=== PATIENT | female | born 1945 | race Caucasian/White ===

== ENCOUNTER 2019-08-21 08:57 | Outpatient (CLI) | payer MEDICARE, BC, SELFPAY ==
--- NOTE | 2019-08-21 09:06 | CT_ITS ---
WS: [id number] CT CHEST ANGIOGRAPHY WITH REFORMATS HISTORY: ATYPICAL CHEST PAIN TECHNIQUE: Contiguous axial images are obtained through the chest during arterial injection of intrav enous contrast. Images are reconstructed to evaluate the pulmonary arteries. MIP imaging also reviewe d. All CT scans at [facility] use at least one of these dose optimization techniques: aut omated exposure control; mA and/or kV adjustment per patient size (includes targeted exams where dose is matched to clinical indication); or iterative reconstruction. CONTRAST: Visipaque 320; 95 mL IV. DLP: 559.0 mGy.cm COMPARISON: 11/29/2018 Good opacification of the pulmonary arteries. No filling defects or pulmonary embolism. Pulmonary art carolee size is slightly larger than the ascending aorta measuring 3.2 cm. Ascending aorta is normal caliber. Mixed opacification of the thoracic aorta. This is probably due to the phase of injection. There is also additional intimal thickening and scattered plaque. Mild enlar gement of the heart. No pericardial or pleural effusions. Small mediastinal and hilar lymph nodes. Th e largest lymph node at the RIGHT hilum measures 8 mm. Mild thickening of the distal esophagus. Moderate atherosclerosis coronary arteries. 2 mm micronodules in the LEFT upper lung. Lungs are hyperinflated from emphysema. No mass. Visualized upper abdominal structures are negative for acute process. CT/CT angio chest PE protcl [id number] IMPRESSION: 1. No pulmonary embolism. 2. Mild pulmonary hypertension. 3. Atherosclerosis aorta with intimal thickening and plaque. 4. Heterogeneous opacification of the thoracic aorta is probably due to phase of injection. Suggest dedicated CTA thoracic aorta. Intraluminal thrombus or di ssection should be excluded. 5. Moderate coronary artery atherosclerosis.
--- NOTE | 2019-08-21 09:06 | FL_ITS ---
WS: [id number] UPPER GI WITH SMALL BOWEL FOLLOW-THROUGH HISTORY: EPIGASTRIC PAIN COMPARISON: None available. FLUOROSCOPIC TIME: 1.2 minutes. Double contrast upper GI examination was performed. Patient swallowed the barium mixture with no difficulty. No esophageal stricture or mass. No hilar he rnia or reflux was demonstrated. Stomach distended well with contrast. Duodenal bulb was distensible pliable. No ulceration or mass. Small bowel follow-through. Barium transited the small bowel at 45 minutes. No small bowel strictures or dilatation. No mass or o bstruction. Normal appearance of the right lower quadrant. FL/FL upperGI air smallbowel ser* IMPRESSION: 1. Unremarkable upper GI examination. 2. Unremarkable small bowel follow-through.
[2019-08-21 10:22] LABS: Blood Urea Nitrogen 9 mg/dL (8-23)
[2019-08-21] MEDS: iodixanol 320 mg/mL 100mL Btl IV (11:01)
== END 2019-08-21 08:58 | disposition home or self-care (01) ==
LOC: CT 09:00
PROVIDERS: PCP Family Medicine; Visit Provider Family Medicine
DX: R07.89 Other chest pain (principal); R10.13 Epigastric pain; I27.20 Pulmonary hypertension, unspecified; I70.0 Atherosclerosis of aorta; I25.10 Atherosclerotic heart disease of native coronary artery without angina pectoris
CPT/HCPCS: 36415; 71275; 74246; 74248; 82565; 84520

== ENCOUNTER 2019-08-24 15:46 | Observation (INO) | payer MEDICARE, BC, SELFPAY ==
[2019-08-24 15:48] VITALS: BP 118/59; PULSE 85; RESP 16; TEMP 37.1; O2SAT 96; BMI 26.5
--- NOTE | 2019-08-24 15:58 | ECG_ITS ---
[facility] Test Date: 2019-08-24 Pat Name: Ella Russell Department: Room: Gender: Female Chaperon: : 1945 Requested By: Pa Pederson Order Number: [id number] Nella MD: Natasha Mckeon M.D. Measurements Intervals [place] Rate: 85 P: 67 [place]: 189 QRS: -40 QRSD: 94 T: 32 QT: 358 QTc: 426 Interpretive Statements SINUS RHYTHM POSSIBLE LEFT ATRIAL ENLARGEMENT [-0.1mV P WAVE IN V1/V2] LOW QRS VOLTAGE IN PRECORDIAL LEADS [QRS DEFLECTION < 1.0 mV IN CHEST LEADS] POSSIBLE ANTERIOR MYOCARDIAL INFARCTION , PROBABLY OLD [30 ms Q WAVE IN V3/V4, OR R < 0.2 mV IN V4] Compared to ECG 12/31/2018 06:58:08 T-wave abnormality no longer present Possible ischemia no longer present Myocardial infarct finding still present Electronically Signed On 08-24-2019 17:01:54 CDT by Natasha Mckeon M.D. [id number]
--- NOTE | 2019-08-24 15:58 | XRR_ITS ---
PROCEDURE INFORMATION: Exam: XR Chest, 1 View Exam date and time: 08/24/2019 4:17 PM Age: 73 years old Clinical indication: Shortness of breath; Left-sided chest pain; Additional info: Cp/sob x 2 days TECHNIQUE: Imaging protocol: XR of the chest Views: 1 view. COMPARISON: CR Chest 1 [place] [id number] 12/31/2018 7:10 AM FINDINGS: Lungs: Unremarkable. No consolidation. Pleural space: Unremarkable. No pleural effusion. No pneumothorax. Heart/Mediastinum: Unremarkable. No cardiomegaly. Bones/joints: Unremarkable. There has been no change since prior XR/XR chest 1V portable [id number] IMPRESSION: No acute findings.
--- NOTE | 2019-08-24 16:00 | ED_ITS ---
Documented by User: Pa Rodriguez DO 08/24/19 16:03 HPI - Chest Pain General: Chief Complaint: Chest Pain Stated Complaint: CHEST PAIN Time Seen by Provider: 08/24/19 15:48 History of Present Illness: HPI narrative: Patient presents to the ER by EMS with complaint of sharp chest pain on the left side of her chest that awoke her from sleep early this morning. Pain is episodic. Patient is unsure of any exacerbating or relieving factors. She states that she is always short of breath not report any change during this pain. Review of Systems General: Reports: 10 or more systems reviewed and unremarkable except in HPI and below PFSH ED PFSH: Medical History COPD (chronic obstructive pulmonary disease) CVA (cerebral vascular accident) IBS (irritable bowel syndrome) Obstructive sleep apnea Seizures Tobacco abuse Surgical History S/P cataract surgery S/P hip replacement Right and Left S/P knee replacement Left Family History Other Heart disease Myocardial infarction Social History Smoking and tobacco status: current every day smoker cigarettes Packs smoked per day: 2 Alcohol intake: current Alcohol intake frequency: holidays/special occasions only Physical Exam Const: COMMON NORMALS: no acute distress, average body habitus, alert and well nourished HENMT: COMMON NORMALS: normocephalic, atraumatic, hearing grossly normal bilaterally, external ears normal, EAC's normal, TM's normal bilaterally, Normal external nose present, Normal nasal mucous membranes and turbinates present, moist oral mucous membranes, oropharynx normal, dentition normal and gingiva nor mal HEAD & SCALP: normocephalic and atraumatic NOSE: Normal external nose present and Normal nasal mucous membranes and turbinates present EXTERNAL EAR: Yes external ears normal EXTERNAL AUDITORY CANAL: EAC's normal TYMPANIC MEMBRANE: TM's normal bilaterally Eye: COMMON NORMALS: Equal, round and reactive pupils present, EOMs intact bilaterally, conjunctivae normal, no scleral icterus, no papilledema, normal visual quinonez by confrontation and fundi normal bilaterally CONJUNCTIVA: Yes conjunctivae normal PUPIL: Yes Equal, round and reactive pupils present DIRECT OPHTHALMOSCOPY: Yes no papilledema and Yes fundi normal bilaterally Neck/C-Spine: COMMON NORMALS: full ROM, no lymphadenopathy, supple, no meningeal signs, no JVD, Thyroid normal and No carotid bruits THYROID: Thyroid normal Chest: COMMONS NORMALS: normal inspection of the chest and normal palpation of entire chest wall Resp: COMMON NORMALS: normal respiratory effort, No retractions, No use of accessory muscles, clear to auscultation bilaterally and percussion normal AUSCULTATION: clear to auscultation bilaterally PERCUSSION: percussion normal Cardio: COMMON NORMALS: no JVD, regular rate, regular rhythm, S1 normal heart sound present, S2 normal heart sound present, No gallops present (Cardio), No clicks present (Cardio), No murmurs present (Cardio), No rub (Cardio) and Peripheral pulses 2+ throughout RATE: regular rate RHYTHM: regular rhythm HEART SOUNDS: S1 normal heart sound present and S2 normal heart sound present PERIPHERAL PULSES: Peripheral pulses 2+ throughout GI: COMMON NORMALS: Normal to inspection, nondistended, normoactive bowel sounds present, Soft to palpation, non-tender, No hepatosplenomegaly present, no masses and no bruits PALPATION: Yes Soft to palpation and Yes No hepatosplenomegaly present : COMMON NORMALS: Yes normal external appearance Back/Pelvis: COMMON NORMALS: thoracic and lumbar spine normal to inspection, no thoracic nor lumbar tenderness, thoraco-lumbar ROM normal and straight leg raise negative bilaterally Extremity: COMMON NORMALS: normal to inspection, full ROM, capillary refill normal, no joint enlargement, no clubbing, cyanosis or edema, no calf tenderness and no pedal edema Neuro: SENSORIUM/ORIENTATION: Yes alert and Yes somnolent MENINGEAL SIGNS: Yes no meningeal signs Skin: COMMON NORMALS: no rashes or lesions noted, no wounds, no jaundice and no mottling GENERAL SKIN EXAM: no rashes or lesions noted Course Vital Signs: Vital signs: Vital Signs Temperature 98.7 F 08/24/19 15:48 Pulse Rate 62 08/24/19 19:00 Respiratory Rate 12 08/24/19 19:00 Blood Pressure 145/65 08/24/19 19:00 Pulse Oximetry 97 08/24/19 19:00 MDM - Chest Pain Lab Data: Labs: Lab Results 08/24/19 08/24/19 08/24/19 Range/Units 16:18 16:18 16:18 WBC 7.6 (4.0-10.0) 10^3/ uL RBC 4.50 (4.1-5.3) 10^6/u L Hgb 13.9 (11.5-15.3) g/dL Hct 42.8 (37.0-47.0) % MCV 95.1 (81-99) fL MCH 30.9 (28.0-34.0) pg MCHC 32.5 (30.0-36.0) g/dL RDW 13.6 (12.1-15.1) % Plt Count 237 (130-400) 10^3/c mm MPV 8.9 (7.4-10.4) fL Neut % (Auto) 67.4 % Lymph % (Auto) 22.1 % Ogle % (Auto) 8.1 % Eos % (Auto) 1.8 % Baso % (Auto) 0.5 % Neut # (Auto) 5.14 (1.8-7.7) 10^3/u L Lymph # (Auto) 1.7 (0.8-4.8) 10^3/u L Ogle # (Auto) 0.6 (0.2-0.9) 10^3/u L Eos # (Auto) 0.1 (0.0-0.8) 10^3/u L Baso # (Auto) 0.0 (0.0-0.1) 10^3/u L Nucleated RBC % (a uto) 0 % Nucleated RBCs # 0.0 /100WBC Sodium 141 (136-145) mmol/L Potassium 3.8 (3.5-5.1) mmol/L Chloride 109 H (98-107) mmol/L Carbon Dioxide 22 (22-29) mmol/L Anion Gap 13.8 (5-19) BUN 13 (8-23) mg/dL Creatinine 1.1 H (0.5-0.9) mg/dL Glucose 122 H (65-115) mg/dL Calculated Osmolal ity 289 (285-295) mOsm/k g Calcium 9.8 (8.5-10.5) mg/dL Total Bilirubin 0.2 (0.15-1.2) mg/dL AST 14 (0-32) U/L ALT 7 (0-33) U/L Alkaline Phosphata se 103 (35-105) IU/L Troponin T Baselin e 9 (0-10) ng/L Troponin T 120 Min [place] (0-10) ng/L Delta Troponin T (0-10) ABS# NT-Pro-B Natriuret Pep 79 (0-125) pg/mL Total Protein 6.9 (6.6-8.7) g/dL Albumin 4.4 (3.5-5.2) g/dL Globulin 2.5 (1.3-4.6) g/dL 08/24/19 Range/Units 18:15 WBC (4.0-10.0) 10^3/ uL RBC (4.1-5.3) 10^6/u L Hgb (11.5-15.3) g/dL Hct (37.0-47.0) % MCV (81-99) fL MCH (28.0-34.0) pg MCHC (30.0-36.0) g/dL RDW (12.1-15.1) % Plt Count (130-400) 10^3/c mm MPV (7.4-10.4) fL Neut % (Auto) % Lymph % (Auto) % Ogle % (Auto) % Eos % (Auto) % Baso % (Auto) % Neut # (Auto) (1.8-7.7) 10^3/u L Lymph # (Auto) (0.8-4.8) 10^3/u L Ogle # (Auto) (0.2-0.9) 10^3/u L Eos # (Auto) (0.0-0.8) 10^3/u L Baso # (Auto) (0.0-0.1) 10^3/u L Nucleated RBC % (a uto) % Nucleated RBCs # /100WBC Sodium (136-145) mmol/L Potassium (3.5-5.1) mmol/L Chloride (98-107) mmol/L Carbon Dioxide (22-29) mmol/L Anion Gap (5-19) BUN (8-23) mg/dL Creatinine (0.5-0.9) mg/dL Glucose (65-115) mg/dL Calculated Osmolal ity (285-295) mOsm/k g Calcium (8.5-10.5) mg/dL Total Bilirubin (0.15-1.2) mg/dL AST (0-32) U/L ALT (0-33) U/L Alkaline Phosphata se (35-105) IU/L Troponin T Baselin e (0-10) ng/L Troponin T 120 Min [place] 10.52 H (0-10) ng/L Delta Troponin T 1.52 (0-10) ABS# NT-Pro-B Natriuret Pep (0-125) pg/mL Total Protein (6.6-8.7) g/dL Albumin (3.5-5.2) g/dL Globulin (1.3-4.6) g/dL Discharge Plan Discharge Patient Disposition: Placed in Observation Admit Provider: Db Suárez Clinical Impression: Chest pain Condition: Stable Coding Level of Care Code ED Button Machine Operator for Chg Fwd Exam Comprehensive Documented by User: Alison Reilly 08/24/19 21:10 HPI - Chest Pain General: Chief Complaint: Chest Pain Stated Complaint: CHEST PAIN Time Seen by Provider: 08/24/19 15:48 [facility], [facility]1983 ED PFSH: Medical History COPD (chronic obstructive pulmonary disease) CVA (cerebral vascular accident) IBS (irritable bowel syndrome) Obstructive sleep apnea Seizures Tobacco abuse Surgical History S/P cataract surgery S/P hip replacement Right and Left S/P knee replacement Left Family History Other Heart disease Myocardial infarction Social History Smoking and tobacco status: current every day smoker cigarettes Packs smoked per day: 2 Alcohol intake: current Alcohol intake frequency: holidays/special occasions only Course Vital Signs: Vital signs: Vital Signs Temperature 98.7 F 08/24/19 15:48 Pulse Rate 62 08/24/19 19:00 Respiratory Rate 12 08/24/19 19:00 Blood Pressure 145/65 08/24/19 19:00 Pulse Oximetry 97 08/24/19 19:00 MDM - Chest Pain MDM Narrative: Medical decision making narrative: The case was reviewed with Dr. Blanco, he agrees to admit the patient for a cath tomorrow. Repeat CTA does not show any evidence of dissection. It does show though severe coronary artery disease. Further care will be dictated by Dr. Blanco. Patient is still chest pain-free. Lab Data: Attestation: I reviewed the patient's lab results. Labs: Lab Results 08/24/19 08/24/19 08/24/19 Range/Units 16:18 16:18 16:18 WBC 7.6 (4.0-10.0) 10^3/ uL RBC 4.50 (4.1-5.3) 10^6/u L Hgb 13.9 (11.5-15.3) g/dL Hct 42.8 (37.0-47.0) % MCV 95.1 (81-99) fL MCH 30.9 (28.0-34.0) pg MCHC 32.5 (30.0-36.0) g/dL RDW 13.6 (12.1-15.1) % Plt Count 237 (130-400) 10^3/c mm MPV 8.9 (7.4-10.4) fL Neut % (Auto) 67.4 % Lymph % (Auto) 22.1 % Ogle % (Auto) 8.1 % Eos % (Auto) 1.8 % Baso % (Auto) 0.5 % Neut # (Auto) 5.14 (1.8-7.7) 10^3/u L Lymph # (Auto) 1.7 (0.8-4.8) 10^3/u L Ogle # (Auto) 0.6 (0.2-0.9) 10^3/u L Eos # (Auto) 0.1 (0.0-0.8) 10^3/u L Baso # (Auto) 0.0 (0.0-0.1) 10^3/u L Nucleated RBC % (a uto) 0 % Nucleated RBCs # 0.0 /100WBC Sodium 141 (136-145) mmol/L Potassium 3.8 (3.5-5.1) mmol/L Chloride 109 H (98-107) mmol/L Carbon Dioxide 22 (22-29) mmol/L Anion Gap 13.8 (5-19) BUN 13 (8-23) mg/dL Creatinine 1.1 H (0.5-0.9) mg/dL Glucose 122 H (65-115) mg/dL Calculated Osmolal ity 289 (285-295) mOsm/k g Calcium 9.8 (8.5-10.5) mg/dL Total Bilirubin 0.2 (0.15-1.2) mg/dL AST 14 (0-32) U/L ALT 7 (0-33) U/L Alkaline Phosphata se 103 (35-105) IU/L Troponin T Baselin e 9 (0-10) ng/L Troponin T 120 Min [place] (0-10) ng/L Delta Troponin T (0-10) ABS# NT-Pro-B Natriuret Pep 79 (0-125) pg/mL Total Protein 6.9 (6.6-8.7) g/dL Albumin 4.4 (3.5-5.2) g/dL Globulin 2.5 (1.3-4.6) g/dL 08/24/19 Range/Units 18:15 WBC (4.0-10.0) 10^3/ uL RBC (4.1-5.3) 10^6/u L Hgb (11.5-15.3) g/dL Hct (37.0-47.0) % MCV (81-99) fL MCH (28.0-34.0) pg MCHC (30.0-36.0) g/dL RDW (12.1-15.1) % Plt Count (130-400) 10^3/c mm MPV (7.4-10.4) fL Neut % (Auto) % Lymph % (Auto) % Ogle % (Auto) % Eos % (Auto) % Baso % (Auto) % Neut # (Auto) (1.8-7.7) 10^3/u L Lymph # (Auto) (0.8-4.8) 10^3/u L Ogle # (Auto) (0.2-0.9) 10^3/u L Eos # (Auto) (0.0-0.8) 10^3/u L Baso # (Auto) (0.0-0.1) 10^3/u L Nucleated RBC % (a uto) % Nucleated RBCs # /100WBC Sodium (136-145) mmol/L Potassium (3.5-5.1) mmol/L Chloride (98-107) mmol/L Carbon Dioxide (22-29) mmol/L Anion Gap (5-19) BUN (8-23) mg/dL Creatinine (0.5-0.9) mg/dL Glucose (65-115) mg/dL Calculated Osmolal ity (285-295) mOsm/k g Calcium (8.5-10.5) mg/dL Total Bilirubin (0.15-1.2) mg/dL AST (0-32) U/L ALT (0-33) U/L Alkaline Phosphata se (35-105) IU/L Troponin T Baselin e (0-10) ng/L Troponin T 120 Min [place] 10.52 H (0-10) ng/L Delta Troponin T 1.52 (0-10) ABS# NT-Pro-B Natriuret Pep (0-125) pg/mL Total Protein (6.6-8.7) g/dL Albumin (3.5-5.2) g/dL Globulin (1.3-4.6) g/dL Imaging Data^: CTA Aorta: Radiologist's impression: [address] [place] [address] CT Scan Report Signed Patient: Ella Russell Unit #: [id number] : 1945 Age/Sex: 73 / F ADM Date: 08/24/19 Loc: ER Room/Bed: Attending Dr: Ordering Provider/Ordering MD: Alison Reilly DO Date of Service: 08/24/19 Procedure(s): CT angio chest abdomen pelvis Accession Number(s): [id number] Report Number: [id number] PROCEDURE INFORMATION: Exam: CT Angiography Chest With Contrast Exam date and time: 08/24/2019 7:32 PM Age: 73 years old Clinical indication: Abdominal pain; Acute; Chest pain; Type not specified; Additional info: Evaluate for dissection TECHNIQUE: Imaging protocol: Computed tomographic angiography of the chest with intravenous contrast. 3D rendering: MIP and/or 3D reconstructed images were created by the technologist. Radiation optimization: All CT scans at this facility use at least one of these dose optimization techniques: automated exposure control; mA and/or kV adjustment per patient size (includes targeted exams where dose is matched to clinical indication); or iterative reconstruction. Contrast material: VISI; Contrast volume: 95 ml; Contrast route: INTRAVENOUS (IV); COMPARISON: CT angio chest PE protcl [id number] 08/21/2019 10:50 AM RADIATION DOSE METRICS: Total DLP (mGy-cm): 1338.33 FINDINGS: Pulmonary arteries: No pulmonary embolus or aortic dissection. Great vessels off aortic arch: Calcification of the thoracic aorta and/or great vessels consistent with atherosclerotic vessel disease. Aorta: Unremarkable. No aortic aneurysm. No aortic dissection. Lungs: Moderate centrilobular emphysema. Pleural space: Unremarkable. No pneumothorax. No pleural effusion. Heart: Severe calcified coronary artery disease. Lymph nodes: Unremarkable. No enlarged lymph nodes. Bones/joints: Unremarkable. No acute fracture. Soft tissues: Unremarkable. IMPRESSION: 1. Moderate centrilobular emphysema. 2. No pulmonary embolus or aortic dissection. 3. Severe calcified coronary artery disease. PROCEDURE INFORMATION: Exam: CT Abdomen And Pelvis With Contrast Exam date and time: 08/24/2019 7:32 PM Age: 73 years old Clinical indication: Abdominal pain; Acute; Chest pain; Type not specified; Additional info: Evaluate for dissection TECHNIQUE: Imaging protocol: Computed tomography of the abdomen and pelvis with intravenous contrast. Radiation optimization: All CT scans at this facility use at least one of these dose optimization techniques: automated exposure control; mA and/or kV adjustment per patient size (includes targeted exams where dose is matched to clinical indication); or iterative reconstruction. Contrast material: VISI; Contrast volume: 95 ml; Contrast route: INTRAVENOUS (IV); COMPARISON: CT angio chest PE protcl [id number] 08/21/2019 10:50 AM RADIATION DOSE METRICS: Total DLP (mGy-cm): 1338.33 FINDINGS: Liver: Normal. No mass. Gallbladder and bile ducts: Normal. No calcified stones. No ductal dilation. Pancreas: Normal. No ductal dilation. Spleen: Calcified splenic granulomas. Adrenals: Normal. No mass. Kidneys and ureters: One or more nonobstructing right renal calyceal stones. Stomach and bowel: Retained colonic high density barium with prominent metallic artifact which obscures some anatomy. Appendix: No evidence of appendicitis. Intraperitoneal space: Unremarkable. No free air. No significant fluid collection. Vasculature: Calcification of the abdominal aorta and/or iliac arteries consistent with atherosclerotic vessel disease. No aneurysm or abdominal aortic dissection. Lymph nodes: Unremarkable. No enlarged lymph nodes. Bladder: Unremarkable as visualized. Reproductive: Unremarkable as visualized. Bones/joints: Bilateral total hip replacement with metallic artifact partially obscuring the pelvic anatomy. Soft tissues: Unremarkable. CT/CT angio chest abdomen pelvis IMPRESSION: 1. Retained colonic high density barium with prominent metallic artifact which obscures some anatomy. 2. Bilateral total hip replacement with metallic artifact partially obscuring the pelvic anatomy. 3. No aneurysm or abdominal aortic dissection. 4. One or more nonobstructing right renal calyceal stones. Radiation Dose CTDIVOL = (mGy): DLP = 1338.33 1338.33 (mGy-cm) Dictated By: Angel Vera MD Signed By: Angel Vera MD Signed Date/Time: 08/24/192015 DD/ 13 Discharge Plan Discharge Patient Disposition: Placed in Observation Admit Provider: Db Suárez Clinical Impression: Chest pain Condition: Stable Coding Level of Care Code ED Button Machine Operator for Chg Fwd Exam Comprehensive
[2019-08-24 16:26] LABS: Basophils % 0.5 %; Eosinophils # 0.1 10^3/uL (0.0-0.8); Eosinophils % 1.8 %; Hematocrit 42.8 % (37.0-47.0); Hemoglobin 13.9 g/dL (11.5-15.3); Lymphocytes # 1.7 10^3/uL (0.8-4.8); Lymphocytes % 22.1 %; Mean Corpuscular HGB Conc 32.5 g/dL (30.0-36.0); Mean Corpuscular Hemoglobin 30.9 pg (28.0-34.0); Mean Corpuscular Volume 95.1 fL (81-99); Mean Platelet Volume 8.9 fL (7.4-10.4); Monocytes # 0.6 10^3/uL (0.2-0.9); Monocytes % 8.1 %; Neutrophils # 5.14 10^3/uL (1.8-7.7); Neutrophils % 67.4 %; Nucleated Red Blood Cells % 0 %; Platelet Count 237 10^3/cmm (130-400); Red Cell Distribution Width 13.6 % (12.1-15.1); White Blood Count 7.6 10^3/uL (4.0-10.0)
[2019-08-24 16:49] LABS: Troponin(5th) Baseline 9 ng/L (0-10)
[2019-08-24 16:52] LABS: Alanine Aminotransferase 7 U/L (0-33); Albumin Level 4.4 g/dL (3.5-5.2); Alkaline Phosphatase 103 IU/L (35-105); Anion Gap 13.8 (5-19); Aspartate Amino Transferase 14 U/L (0-32); Blood Urea Nitrogen 13 mg/dL (8-23); Calcium 9.8 mg/dL (8.5-10.5); Carbon Dioxide 22 mmol/L (22-29); Chloride 109 mmol/L (98-107); Globulin 2.5 g/dL (1.3-4.6); Glucose 122 mg/dL (65-115); NT Pro B Type Natriuretic Pept 79 pg/mL (0-125); Osmolality Calculated 289 mOsm/kg (285-295); Potassium 3.8 mmol/L (3.5-5.1); Sodium 141 mmol/L (136-145); Total Bilirubin 0.2 mg/dL (0.15-1.2); Total Protein 6.9 g/dL (6.6-8.7)
--- NOTE | 2019-08-24 17:58 | ECG_ITS ---
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 Measurements Intervals [place] Rate: 55 P: 68 MS: 211 QRS: -33 QRSD: 92 T: 70 QT: 398 QTc: 384 Interpretive Statements SINUS BRADYCARDIA WITH FIRST DEGREE AV BLOCK LOW QRS VOLTAGE IN PRECORDIAL LEADS [QRS DEFLECTION < 1.0 mV IN CHEST LEADS] PATTERN CONSISTENT WITH PULMONARY DISEASE MODERATE T-WAVE ABNORMALITY, CONSIDER ANTERIOR ISCHEMIA [-0.1+ mV T WAVE IN V3/V4] WARNING: DATA QUALITY MAY AFFECT INTERPRETATION Compared to ECG 08/24/2019 18:31:22 First degree AV block now present T-wave abnormality now present Possible ischemia now present Incomplete right bundle-branch block no longer present Myocardial infarct finding no longer present Electronically Signed On 08-25-2019 19:05:27 CDT by Db Suárez M.D. [id number]
--- NOTE | 2019-08-24 18:25 | PC.NURSE ---
EKG done at 1825 and shown to ER doctor
[2019-08-24 18:34] LABS: Troponin 5 2HR 10.52 ng/L (0-10); Troponin 5 2HR Delta 1.52 ABS# (0-10)
[2019-08-24 18:42] VITALS: BP 105/80; PULSE 94; RESP 18; O2SAT 97
[2019-08-24 19:00] VITALS: BP 145/65; PULSE 62; RESP 12; O2SAT 97
--- NOTE | 2019-08-24 19:16 | CTR_ITS ---
PROCEDURE INFORMATION: Exam: CT Angiography Chest With Contrast Exam date and time: 08/24/2019 7:32 PM Age: 73 years old Clinical indication: Abdominal pain; Acute; Chest pain; Type not specified; Additional info: Evaluate for dissection TECHNIQUE: Imaging protocol: Computed tomographic angiography of the chest with intravenous contrast. 3D rendering: MIP and/or 3D reconstructed images were created by the technologist. Radiation optimization: All CT scans at this facility use at least one of these dose optimization techniques: automated exposure control; mA and/or kV adjustment per patient size (includes targeted exams where dose is matched to clinical indication); or iterative reconstruction. Contrast material: VISI; Contrast volume: 95 ml; Contrast route: INTRAVENOUS (IV); COMPARISON: CT angio chest PE protcl [id number] 08/21/2019 10:50 AM RADIATION DOSE METRICS: Total DLP (mGy-cm): 1338.33 FINDINGS: Pulmonary arteries: No pulmonary embolus or aortic dissection. Great vessels off aortic arch: Calcification of the thoracic aorta and/or great vessels consistent with atherosclerotic vessel disease. Aorta: Unremarkable. No aortic aneurysm. No aortic dissection. Lungs: Moderate centrilobular emphysema. Pleural space: Unremarkable. No pneumothorax. No pleural effusion. Heart: Severe calcified coronary artery disease. Lymph nodes: Unremarkable. No enlarged lymph nodes. Bones/joints: Unremarkable. No acute fracture. Soft tissues: Unremarkable. IMPRESSION: 1. Moderate centrilobular emphysema. 2. No pulmonary embolus or aortic dissection. 3. Severe calcified coronary artery disease. PROCEDURE INFORMATION: Exam: CT Abdomen And Pelvis With Contrast Exam date and time: 08/24/2019 7:32 PM Age: 73 years old Clinical indication: Abdominal pain; Acute; Chest pain; Type not specified; Additional info: Evaluate for dissection TECHNIQUE: Imaging protocol: Computed tomography of the abdomen and pelvis with intravenous contrast. Radiation optimization: All CT scans at this facility use at least one of these dose optimization techniques: automated exposure control; mA and/or kV adjustment per patient size (includes targeted exams where dose is matched to clinical indication); or iterative reconstruction. Contrast material: VISI; Contrast volume: 95 ml; Contrast route: INTRAVENOUS (IV); COMPARISON: CT angio chest PE protcl [id number] 08/21/2019 10:50 AM RADIATION DOSE METRICS: Total DLP (mGy-cm): 1338.33 FINDINGS: Liver: Normal. No mass. Gallbladder and bile ducts: Normal. No calcified stones. No ductal dilation. Pancreas: Normal. No ductal dilation. Spleen: Calcified splenic granulomas. Adrenals: Normal. No mass. Kidneys and ureters: One or more nonobstructing right renal calyceal stones. Stomach and bowel: Retained colonic high density barium with prominent metallic artifact which obscures some anatomy. Appendix: No evidence of appendicitis. Intraperitoneal space: Unremarkable. No free air. No significant fluid collection. Vasculature: Calcification of the abdominal aorta and/or iliac arteries consistent with atherosclerotic vessel disease. No aneurysm or abdominal aortic dissection. Lymph nodes: Unremarkable. No enlarged lymph nodes. Bladder: Unremarkable as visualized. Reproductive: Unremarkable as visualized. Bones/joints: Bilateral total hip replacement with metallic artifact partially obscuring the pelvic anatomy. Soft tissues: Unremarkable. CT/CT angio chest abdomen pelvis IMPRESSION: 1. Retained colonic high density barium with prominent metallic artifact which obscures some anatomy. 2. Bilateral total hip replacement with metallic artifact partially obscuring the pelvic anatomy. 3. No aneurysm or abdominal aortic dissection. 4. One or more nonobstructing right renal calyceal stones. Radiation Dose CTDIVOL = (mGy): DLP = 1338.33~1338.33 (mGy-cm)
[2019-08-24] MEDS: iodixanol 320 mg/mL 100mL Btl 95 ML IV (19:42)
[2019-08-24] MEDS: enoxaparin 80 mg/0.8 mL Syringe 68 MG SUBCUT (20:53)
[2019-08-24 21:32] VITALS: BP 127/64; PULSE 62; RESP 12; O2SAT 96
--- NOTE | 2019-08-24 21:58 | ECG_ITS ---
[facility] Test Date: 2019-08-24 Pat Name: Ella Russell Department: Room: Gender: Female Multi Care Technician: : 1945 Requested By: Pa Pederson Order Number: [id number] Nella MD: Natasha Mckeon M.D. Measurements Intervals [place] Rate: 52 P: 55 VT: 185 QRS: -24 QRSD: 93 T: 30 QT: 443 QTc: 415 Interpretive Statements SINUS BRADYCARDIA LOW QRS VOLTAGE IN PRECORDIAL LEADS [QRS DEFLECTION < 1.0 mV IN CHEST LEADS] INCOMPLETE RIGHT BUNDLE BRANCH BLOCK [90+ ms QRS DURATION, TERMINAL R IN V1/V2, 40+ ms S IN I/aVL/V4/V5/V6] INFERIOR MYOCARDIAL INFARCTION , PROBABLY OLD [40+ ms Q WAVE AND/OR ST/T ABNORMALITY IN II/aVF] Compared to ECG 08/24/2019 16:01:15 Incomplete right bundle-branch block now present Sinus rhythm no longer present Myocardial infarct finding still present Electronically Signed On 08-24-2019 22:29:42 CDT by Natasha Mckeon M.D. [id number]
[2019-08-24 22:12] VITALS: BP 145/75; PULSE 58; RESP 16; TEMP 36.7; O2SAT 96
--- NOTE | 2019-08-24 22:23 | P.HP_ITS ---
Providers/Chief Complaint Admitting Physician: Db Suárez MD Primary Care Provider: Remberto Rock MD Chief Complaint: CHEST PAIN History of Present Illness Ella Russell is a 73 year old female past medical history significant for [id number] of smoking 2 packs a day, COPD, hypertension, hyperlipidemia who for the last 1 year has been struggling with off and on chest pain. According to the patient it has worsening and increasing in frequency and duration she underwent stress test recently which was not suggestive of obstructive coronary artery disease, CTA were performed which did not show pulmonary embolism more dissecting aneurysm, according to her she has been using multiple inhalers but shortness of breath is also getting worse. For the last couple of days she has been noticing off-and-on left side chest pain but she described under the left armpit cutting and piercing in nature like last night it woke her up from the sleep as well this evening when chest pain became more consistent she decided to come to ER. Initial cardiac markers were within normal limit nitroglycerin relieved the chest pain she was admitted after given Lovenox injection. Twelve- lead EKG showed sinus bradycardia with nonspecific anterolateral ST flattening, incomplete right bundle branch block Review of Systems Const: Denies: fever(s), chills, body aches, change in appetite or change in weight Card: Reports: chest pain Resp: Reports: dyspnea GI: Denies: abdominal pain, nausea or vomiting : Denies: flank pain or difficulty voiding Musc: Reports: back pain; Denies: neck pain Skin/Breast: Denies: rash or pruritus Neuro: Denies: headache(s) or numbness in extremities Psych: Denies: anxiety or depression Medications/Allergies Home Medications Medication Instructions Recorded Confirmed Last Taken Type amlodipine 5 mg tablet 5 mg PO DAILY 04/03/19 08/24/19 08/24/19 History clopidogrel 75 mg tablet 75 mg PO DAILY 04/03/19 08/24/19 08/24/19 History rosuvastatin 20 mg tablet 20 mg PO BEDTIME 04/03/19 08/24/19 08/23/19 History zonisamide 100 mg capsule 200 mg PO BID 04/03/19 08/24/19 08/24/19 History acetaminophen [Tylenol Extra 500 mg PO PRN 08/24/19 08/24/19 08/22/19 History Strength] budesonide-formoterol [Symbicort] 2 puff INHALATION DAILY 08/24/19 08/24/19 Unknown History multivitamin [Multiple Vitamins] 1 tab PO DAILY 08/24/19 08/24/19 08/23/19 History nitroglycerin [Nitrostat] 0.4 mg SUBLINGUAL Q5M PRN 08/24/19 08/24/19 08/24/19 History pantoprazole [Protonix] 40 mg PO DAILY 08/24/19 08/24/19 08/24/19 History Allergies Allergy/AdvReac Type Severity Reaction Status Date / Time No Known Allergies Allergy Verified 08/24/19 16:33 PFSH Acute PFSH: Medical History COPD (chronic obstructive pulmonary disease) CVA (cerebral vascular accident) IBS (irritable bowel syndrome) Obstructive sleep apnea Seizures Tobacco abuse Surgical History S/P cataract surgery S/P hip replacement Right and Left S/P knee replacement Left Family History Other Heart disease Myocardial infarction Social History Smoking and tobacco status: current every day smoker cigarettes Packs smoked per day: 2 Alcohol intake: current Alcohol intake frequency: holidays/special occasions only Vitals/I&O/Wt Last Vital Signs Temp 98.7 F 08/24/19 15:48 Pulse 62 08/24/19 21:32 Resp 12 08/24/19 21:32 BP 127/64 08/24/19 21:32 Pulse Ox 96 08/24/19 21:32 08/24/19 08/24/19 08/24/19 06:59 14:59 22:59 Intake Total 200 / 200 Balance 200 / 200 Weight last 48 hrs Weight 150 lb Physical Exam Narrative: EXAM NARRATIVE: GENERAL: Patient is alert, awake and oriented x3. NECK: No jugular vein distension. HEENT: No cyanosis. No icterus. No pallor. HEART: Regular S1 and S2. No murmur, rub or gallop. LUNGS: Clear to auscultate bilaterally. ABDOMEN: Soft, nontender and nondistended. Positive bowel sounds. No guarding, rebound or tenderness. CENTRAL NERVOUS SYSTEM: Grossly nonfocal. EXTREMITIES: Lower extremities without edema bilaterally. . Data : 08/24/19 16:18 08/24/19 16:18 A&P Assessment and plan (1) Chest pain: Patient is high risk for acute coronary syndrome, she has [id number] of continuous tobacco abuse, she has hypertension hyperlipidemia pattern of chest pain along with shortness of breath which has increased in frequency and duration is suspicious for unstable angina, she also has moderate calcification reported on the CT scan of the coronary artery. She has a recent negative stress test due to bradycardia she is not on beta-anne however she is on good medical regimen including statin nitroglycerin Plavix amlodipine, we will therefore suggest proceeding with left heart cath, patient has been explained all risk benefit and alternative for the procedure she would like to proceed with it. She is already on Plavix we will continue. She will be n.p.o. after 7 AM most likely angiogram will be performed in the afternoon tomorrow 2:30 PM Status: Acute Qualifiers: Chest pain type: unspecified Qualified Code(s): R07.9 - Chest pain, unspecified (2) Tobacco abuse: Advised to quit smoking patient did not give any answer Status: Acute (3) COPD (chronic obstructive pulmonary disease): Currently stable. Continue current regimen Status: Acute (4) CVA (cerebral vascular accident): Stable. 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
[2019-08-24 22:41] LABS: Troponin 5 6HR 8.61 ng/L (0-10)
[2019-08-24 22:51] LABS: Troponin 5 6HR Delta -0.39 ng/L (0-12)
--- NOTE | 2019-08-24 22:57 | PC.NURSE ---
ADMISSION: Pt arrived to the floor around 2144 via ER stretcher. Ambulated to bed without any difficultly. Denies chest pain at this time but says it has been intermittent throughout the day to the point where it has awakened her from sleep. Pt states that she received ntg and asa in ambulance and lovenox given in ER. Dr. Suárez at bedside and plans to order cath, but will re evaluate with patient in AM. Patient noted to be SB on monitor with rate of 55-60. IV in left AC clean, dry, and intact. Food at bedside brought from family. No further needs or requests at this time. Awaiting further orders.
[2019-08-24 23:51] VITALS: BP 102/59; PULSE 55; RESP 14; O2SAT 94
[2019-08-25] VITALS (9 sets, daily range): BP systolic 94–156; BP diastolic 51–69; PULSE 46–54; RESP 12–16; TEMP 36.7–36.9; O2SAT 94–97
[2019-08-25 03:52] LABS: Basophils % 0.5 %; Eosinophils # 0.2 10^3/uL (0.0-0.8); Eosinophils % 2.6 %; Hematocrit 40.2 % (37.0-47.0); Lymphocytes # 2.1 10^3/uL (0.8-4.8); Lymphocytes % 24.9 %; Mean Corpuscular HGB Conc 32.3 g/dL (30.0-36.0); Mean Corpuscular Hemoglobin 30.9 pg (28.0-34.0); Mean Corpuscular Volume 95.5 fL (81-99); Mean Platelet Volume 9.1 fL (7.4-10.4); Monocytes # 0.8 10^3/uL (0.2-0.9); Neutrophils # 5.38 10^3/uL (1.8-7.7); Neutrophils % 62.9 %; Nucleated Red Blood Cells % 0 %; Platelet Count 217 10^3/cmm (130-400); Red Blood Count 4.21 10^6/uL (4.1-5.3); Red Cell Distribution Width 13.5 % (12.1-15.1); White Blood Count 8.6 10^3/uL (4.0-10.0)
[2019-08-25 04:21] LABS: Anion Gap 13.5 (5-19); Blood Urea Nitrogen 13 mg/dL (8-23); Calcium 9.1 mg/dL (8.5-10.5); Carbon Dioxide 23 mmol/L (22-29); Chloride 110 mmol/L (98-107); Glucose 124 mg/dL (65-115); Osmolality Calculated 294 mOsm/kg (285-295); Potassium 3.5 mmol/L (3.5-5.1); Sodium 143 mmol/L (136-145)
--- NOTE | 2019-08-25 05:39 | PC.NURSE ---
Pt stable through out this shift. No complaints of chest pain. Heart rate 45-60. Pt still unsure if she wants to precede with COA, would like to wait until she talks to her children. Dr. Suárez to round this AM and discuss case further with patient. No further needs at this time.
--- NOTE | 2019-08-25 09:18 | PC.CHAP ---
Pastoral Care Encounter/Spiritual Assessment Type of Contact [] Declined falafel cart cook visit [] Patient/Family/Request visit [] Outpatient visit [] Follow-up visit [] Physician referral [] Code/Alert [x] Routine visit [] Staff referral [] Actively dying [] Patient sleeping [] Family support [] [] Out of room [] Palliative care [] [] Receiving care in room [] Pre-surgical visit [] Trauma [] Long length of stay [] ICU visit [] Other: Relational/Emotional Strength [] Patient feels connected with others/family/visitors/staff [] Distress [] Loneliness/isolation [] Abandonment Spirituality of Patient [] Person of Tara [] Attends Voodoo of their Tara [] Believes in Prayer [] Reads Bible or Congregational materials [] There are Spiritual issues to be addressed Grinder Outside Diameter Interventions [x] Prayer [x] Active listening [x] Non-anxious presence [x] Spiritual/emotional support [] Crisis/trauma care [] Spiritual counseling [] Bereavement support [] Provided bereavement packet [] Provided Bible/devotional materials [] Provided toy/stuffed animal, coloring book to patient or family member [] Provided Communion [] Anointing/Cardinal [] Salvation [x] Completed spiritual assessment [] Other: Impact on Illness or Injury [] Angry [] Fearful [] Anxious [] Often cries [] Exhaustion [] Unable to work [] Unable to attend congregation [] Unable to walk/stand [] Unable to read [] Unable to drive [] Unable to eat/drink [] Unable to sleep [] Unable to be with family [] Patient intubated [] Other: Summary Patient prepared for procedure this afternoon. Felling better. Time spent with patient 15 min
[2019-08-25] MEDS: sodium chloride 0.9% 1,000 ML 100 ML IV (09:19)
--- NOTE | 2019-08-25 13:08 | PC.RESP ---
Smoking Cessation and Pulmonary Rehab information with a schedule of classes sent to patient,.
[2019-08-25] MEDS: diphenhydrAMINE 50 mg Capsule PO (14:24)
--- NOTE | 2019-08-25 14:48 | XACV_ITS ---
Exam Room: [facility] Ht: 160 cm Wt: 68 kg BSA: 1.76 m2 Gender: Female : 1945 Any Known Allergies: No known allergies Exam Priority: Routine Procedure(s): Procedure Description: Diagnostic procedure Procedure Description: Left ventriculography Procedure Description: Coronary Angiography Diagnostic Cath Status: Elective Diagnostic Findings LM has 0% stenosis. CX has 0% stenosis. dLAD: Mild 40% stenosis, JASEN: 3 flow. mRCA: Mild 30% stenosis, JASEN: 3 flow. Coronary angiography shows right dominance. Conclusions There is mild coronary artery disease with two vessel disease. Hyperdynamic left ventricular systolic function. Ejection fraction of 70%. 73-year-old female past medical history significant for [id number] of tobacco abuse, hypertension hyperlipidemia cerebral vascular accident for worsening of recurrent chest pain admitted to the hospital she was ruled out for acute coronary syndrome, CT scan was suggestive of calcified coronary arteries, she underwent left heart cath with suspicion of unstable angina found to have nonobstructive coronary artery disease including mid 40% LAD rest of the vessel luminal irregularities. Most likely chest pain is pleuritic in nature or due to coronary spasm second to excessive tobacco abuse. Advised to quit smoking. Recommendations Continue current medical management and risk factor modification. Ejection Fraction: 70.0 % Pressures Phase:Rest AO : 238 mmHg / 131 mmHg ( 181 mmHg ) @ 10:11:00 AM 239 mmHg / 133 mmHg ( 178 mmHg ) @ 10::00 AM 138 mmHg / 61 mmHg ( 93 mmHg ) @ ::00 AM 138 mmHg / 61 mmHg ( 93 mmHg ) @ ::00 AM LV : 226 mmHg / 3 mmHg / @ 10:11:00 AM 210 mmHg / 4 mmHg / @ 10::00 AM 138 mmHg / -3 mmHg / @ ::00 AM 136 mmHg / 2 mmHg / @ 10:22:00 AM 135 mmHg / 1 mmHg / @ 10:22:00 AM Valves Phase:DefaultPhase AV : 0.0 mmHg @ 3:35:25 PM AV Mean Gradient: 0.0 mmHg @ 3:35:25 PM Clinical Evaluation EBL: 5mL-10mL Procedural Details Procedure Consent Obtained. Pre-Procedure Time Out. Identified patient by full name and date of as verbalized by the patient/guarantor. Does the consent match the physician's order: Yes. Accurate & Complete Informed Consent: Yes. Inpatient/Outpatient History & Physical on Chart: Yes. If H&P is completed, is and addenduem needed: No; If yes, is the addendum complete: N/A. Visualize and Verify Site with Patient/Guarantor: N/A. Relevant Radiology Images available: Yes. Pre-op teaching completed and patient verbalized understanding. The risks, benefits, and alternatives of sedation and/or procedure were discussed by physician. The patient agrees to continue. Procedure started. Correct patient, site and procedure confirmed by cath team. Current diagnosis: Chest Pain. PERRLA. Strong, equal hand licensed guide bilaterally. Lungs clear x 5 lobes. IV Site on Arrival: 20 gauge in the left anticubital. IV Fluids: 0.9% NaCl at KVO. 600 mL infused prior to labor relations or personnel negotiator. Pre Procedural Pulses: bilateral dorsalis pedis was 3+. Pre Procedural Pulses: bilateral posterior tibial was 3+. Pre Procedural Pulses: bilateral radial was 3+. Oxygen started at 2liters/min via nasal canula. bilateral groins was prepped with chloroprep then draped in the usual sterile fashion. right radial was prepped with chloroprep then draped in the usual sterile fashion. Physician notified. Baseline sample Acquired. HR: 42 BPM. Equipment: 6F - Radial. Physician arrived. Physician scrubbed in. Immediate Pre-Procedure Time Out. Correct Patient: Yes; Correct Procedure: Yes; Correct Site: Yes; Correct Patient Position: Yes; Correct Supplies: Yes; Dried Flammable Prep: Yes; Blood Products Available: No;. Lidocaine 1% infiltrated to the right radial. Arterial access obtained. A 5 tajik TIG catheter in over wire. EDP Sample taken: LV 226/3,7; HR: 49 BPM; SpO2: 98%. Pullback taken: LV 210/4,8; AO 238/131(181); Mean: , Peak to Peak: 0mmHg, SEP: ; HR: 58 BPM; SpO2: 98%. Catheter redirected to the LCA. Multiple views taken of right coronary artery. Catheter redirected to the RCA. Catheter out. A 5 tajik Angled Pig catheter in over wire. EDP Sample taken: LV 138/-4,29; HR: 58 BPM; SpO2: 97%. LV gram performed in ENRIQUEZ @ 10 mL/second for a total of 30 mL. EDP Sample taken: LV 136/2,27; HR: 43 BPM; SpO2: 97%. Pullback taken: LV 135/1,27; AO 138/61(93); Mean: 0mmHg, Peak to Peak: 0mmHg, SEP: 18sec/min; HR: 48 BPM; SpO2: 97%. Vital chart was stopped. TR band placed. Hemostasis obtained. A TR Band was successful obtaining hemostatsis at the Right Radial artery insertion site. Post Procedure: Pulses reassessed and unchanged. PERRLA. Strong, equal hand licensed guide bilaterally. No VTE prophylaxis required. Medication's Wasted: Lidocaine 1% = 18 mL. Medication's Wasted: Nitro = 49.8 mg. Medication's Wasted: Heparin = 1000 units. Total IV fluids: 50 mL. Contrast type used: Omnipaque 300 mgI/mL, 500 mL bottle. Post-op diagnosis: Normal Coronaries. Complications: None. Estimated blood loss: 5mL-10mL. Patient transferred by bed to 1st floor. Procedure completed. Site: Right Radial artery Sheath Size: 6 Fr Hemostasis Method: TR Band Hemostasis Success: Successful Procedure Medications Start: 3:04 PM Stop: 3:04 PM Medication: Versed Amount: 1 mg Route: I.V. Start: 3:04 PM Stop: 3:04 PM Medication: Fentanyl Amount: 50 mcg Route: I.V. Start: 3:08 PM Stop: 3:08 PM Medication: Nitrogylcerin Amount: 200 mcg Route: I.A. Start: 3:11 PM Stop: 3:11 PM Medication: Heparin Amount: 5000 units Route: I.V. Start: 3:21 PM Stop: 3:21 PM Medication: Versed Amount: 1 mg Route: I.V. Start: 3:21 PM Stop: 3:21 PM Medication: Fentanyl Amount: 50 mcg Route: I.V. I, the attending physician, have reviewed and verified all procedure medications. Yes, all medications given per verbal order History/Risk Factors Hypertension: No Dyslipidemia: No Peripheral Arterial Disease (PAD): No Myocardial Infarction (W[place]): No Obesity: No Renal Disease: No Prior Interventions PCI: No CABG: No Valve Surgery: No Report Signatures Finalized by:Db Suárez MD on 09/10/2019 5:33:49 PM
--- NOTE | 2019-08-25 15:41 | PM.DCS ---
Discharge Providers Date of Admission: 08/24/19 20:44 Date of Discharge: August 25, 2019 Attending Provider at Admission: Db Suárez MD Attending Provider at Discharge: Db Suárez MD Primary Care Provider: Remberto Rock MD Diagnoses at Discharge Discharge Diagnosis (1) Chest pain: Status: Acute Qualifiers: Chest pain type: unspecified Qualified Code(s): R07.9 - Chest pain, unspecified (2) Tobacco abuse: Status: Acute (3) COPD (chronic obstructive pulmonary disease): Status: Acute (4) CVA (cerebral vascular accident): Status: Acute Reason for Visit Reason for Visit: CHEST PAIN Hospital Course Discharge Summary: 73-year-old female past medical history significant for [id number] of tobacco abuse, hypertension hyperlipidemia cerebral vascular accident for worsening of recurrent chest pain admitted to the hospital she was ruled out for acute coronary syndrome, CT scan was suggestive of calcified coronary arteries, she underwent left heart cath with suspicion of unstable angina found to have nonobstructive coronary artery disease including mid 40% LAD rest of the vessel luminal irregularities. Most likely chest pain is pleuritic in nature or due to coronary spasm second to excessive tobacco abuse. Advised to quit smoking. She will be started on long-acting nitroglycerin as well. Post procedure patient did fine, right wrist looks good. She is being discharged home. She is advised to follow-up with wound care physician and her diabetes specialist Dr. Mckeon. Physical Exam Narrative: EXAM NARRATIVE: GENERAL: Patient is alert, awake and oriented x3. NECK: No jugular vein distension. HEENT: No cyanosis. No icterus. No pallor. HEART: Regular S1 and S2. No murmur, rub or gallop. LUNGS: Clear to auscultate bilaterally. ABDOMEN: Soft, nontender and nondistended. Positive bowel sounds. No guarding, rebound or tenderness. CENTRAL NERVOUS SYSTEM: Grossly nonfocal. EXTREMITIES: Lower extremities without edema bilaterally. . Discharge Data Data Completed and Pending: Completed Studies During Hospitalization Category Date Time Status CT angio chest ab domen pelvis Stat Cat Scan 08/24/19 19:16 Completed XR chest 1V loki ble [id number] Stat Exams 08/24/19 15:58 Completed Pending at discharge Category Date Time Status GUITAR INSTRUCTOR request for service Routin e Exams 08/25/19 14:48 Ordered Labs from last 24 hours 08/25/19 08/25/19 08/24/19 03:15 03:15 22:21 WBC 8.6 RBC 4.21 Hgb 13.0 Hct 40.2 MCV 95.5 MCH 30.9 MCHC 32.3 RDW 13.5 Plt Count 217 MPV 9.1 Neut % (Auto) 62.9 Lymph % (Auto) 24.9 [place]atte % (Auto) 9.0 Eos % (Auto) 2.6 Baso % (Auto) 0.5 Neut # (Auto) 5.38 Lymph # (Auto) 2.1 [place]atte # (Auto) 0.8 Eos # (Auto) 0.2 Baso # (Auto) 0.0 Nucleated RBC % (a uto) 0 Nucleated RBCs # 0.0 Sodium 143 Potassium 3.5 Chloride 110 H Carbon Dioxide 23 Anion Gap 13.5 BUN 13 Creatinine 1.0 H Glucose 124 H Calculated Osmolal ity 294 Calcium 9.1 Total Bilirubin AST ALT Alkaline Phosphata se Troponin T Baselin e Troponin T 120 Min [place] Delta Troponin T Troponin T Hi Sens 6Hr 8.61 Troponin T Hi Sens 6Hr Delta -0.39 L NT-Pro-B Natriuret Pep Total Protein Albumin Globulin 08/24/19 08/24/19 08/24/19 18:15 16:18 16:18 WBC RBC Hgb Hct MCV MCH MCHC RDW Plt Count MPV Neut % (Auto) Lymph % (Auto) [place]atte % (Auto) Eos % (Auto) Baso % (Auto) Neut # (Auto) Lymph # (Auto) [place]atte # (Auto) Eos # (Auto) Baso # (Auto) Nucleated RBC % (a uto) Nucleated RBCs # Sodium 141 Potassium 3.8 Chloride 109 H Carbon Dioxide 22 Anion Gap 13.8 BUN 13 Creatinine 1.1 H Glucose 122 H Calculated Osmolal ity 289 Calcium 9.8 Total Bilirubin 0.2 AST 14 ALT 7 Alkaline Phosphata se 103 Troponin T Baselin e 9 Troponin T 120 Min [place] 10.52 H Delta Troponin T 1.52 Troponin T Hi Sens 6Hr Troponin T Hi Sens 6Hr Delta NT-Pro-B Natriuret Pep 79 Total Protein 6.9 Albumin 4.4 Globulin 2.5 08/24/19 16:18 WBC 7.6 RBC 4.50 Hgb 13.9 Hct 42.8 MCV 95.1 MCH 30.9 MCHC 32.5 RDW 13.6 Plt Count 237 MPV 8.9 Neut % (Auto) 67.4 Lymph % (Auto) 22.1 [place] % (Auto) 8.1 Eos % (Auto) 1.8 Baso % (Auto) 0.5 Neut # (Auto) 5.14 Lymph # (Auto) 1.7 [place]atte # (Auto) 0.6 Eos # (Auto) 0.1 Baso # (Auto) 0.0 Nucleated RBC % (a uto) 0 Nucleated RBCs # 0.0 Sodium Potassium Chloride Carbon Dioxide Anion Gap BUN Creatinine Glucose Calculated Osmolal ity Calcium Total Bilirubin AST ALT Alkaline Phosphata se Troponin T Baselin e Troponin T 120 Min [place] Delta Troponin T Troponin T Hi Sens 6Hr Troponin T Hi Sens 6Hr Delta NT-Pro-B Natriuret Pep Total Protein Albumin Globulin Vitals: Last Vital Signs Temp 98.2 F 08/25/19 12:00 Pulse 53 L 08/25/19 12:00 Resp 16 08/25/19 12:00 BP 135/67 08/25/19 14:25 Pulse Ox 96 08/25/19 12:00 Discharge Plan Discharge Patient Disposition: Home, Self-Care Condition: Stable Prescriptions: New isosorbide mononitrate 10 mg tablet 10 mg PO BID Qty: 60 RF: 4 Continued amlodipine 5 mg tablet 5 mg PO DAILY RF: 0 clopidogrel 75 mg tablet 75 mg PO DAILY RF: 0 rosuvastatin 20 mg tablet 20 mg PO BEDTIME RF: 0 zonisamide 100 mg capsule 200 mg PO BID RF: 0 Multiple Vitamins Tablet 1 tab PO DAILY RF: 0 Tylenol Extra Strength 500 mg Tablet 500 mg PO PRN RF: 0 Protonix 40 mg Tablet,Delayed Release (Dr/Ec) 40 mg PO DAILY RF: 0 Nitrostat 0.4 mg Tablet, Sublingual 0.4 mg SUBLINGUAL Q5M PRN (Reason: Chest Pain) RF: 0 Symbicort 160-4.5 mcg/actuation HFA aerosol inhaler 2 puff INHALATION DAILY RF: 0 Discharge Orders: Discharge Order (Routine); Ordered 08/25/19 Ordered By: Db Suárez Discharge Diet: Cardiac Discharge Activity: Increase activity as tolerated Patient Instructions: Left Heart Catheterization (DC) Activity Restrictions/Additional Instructions: Follow-up with primary care physician and Dr. Mckeon as scheduled Discharge Attestations Time Spent in Discharge Care*: less than 30 min Specific Discharge Activities: Specific discharge activities: educating patient Time Spent in Smoking Cessation: Time spent discussing smoking cessation with patient: 3 to 10 minutes Quality Metrics Clinical Quality Measures During this hospital stay, did patient experience: None Coding Level of Care Code Acute Servicer Travel Trailers for Matthew Velásquez Medical Decision Making Moderate Complexity Diagnoses Chest pain R07.9 Chest pain type: unspecified Tobacco abuse Z72.0 COPD (chronic obstructive pulmonary disease) J44.9 CVA (cerebral vascular accident) I63.9
--- NOTE | 2019-08-25 15:49 | PC.NURSE ---
Patient back to floor from lab nurse. Right radial access asymptomatic, 2 nurse verification of site. TR band intact with 19 ml of air. Right hand dusky and cool to touch. 2 ml of air removed. Patient tolerated well.
--- NOTE | 2019-08-25 19:27 | PC.NURSE ---
Post cardiac cath Vital signs VS machine malfunction after patient returned from track repair laborer. BP measurements were not saved following intitial BP, so nurse unable to chart those values. Patient remained stable with asymptomatic bradycardia. Dr. Suárez has been notified. No further orders received.
--- NOTE | 2019-08-25 19:37 | PC.NURSE ---
TR Band TR Band off at this time. 19 ml of air removed. Incision asymptomatic, no oozing or hematoma noted. Dressing applied, CDI. Patient tolerated well.
== END 2019-08-25 20:17 | disposition home or self-care (01) ==
LOC: ER 19:10 → CSU 21:09
PROVIDERS: Family Medicine; Admitting Provider Internal Medicine Cardiovascular Disease; Emergency Provider Emergency Medicine; PCP Family Medicine; Visit Provider Internal Medicine Cardiovascular Disease
DX: I45.10 Unspecified right bundle-branch block (principal); R07.9 Chest pain, unspecified; F17.210 Nicotine dependence, cigarettes, uncomplicated; J44.9 Chronic obstructive pulmonary disease, unspecified; I10 Essential (primary) hypertension; E78.5 Hyperlipidemia, unspecified; Z86.73 Personal history of transient ischemic attack (TIA), and cerebral infarction without residual deficits; G47.33 Obstructive sleep apnea (adult) (pediatric); Z82.49 Family history of ischemic heart disease and other diseases of the circulatory system
CPT/HCPCS: 12345; 36415; 71045; 71275; 74174; 80048; 80053; 83880; 84484; 85025; 93005; 93452; 96360; 96361; 96372; 99283; 99285; C1769; C1887; C1894; G0378; J1644; J1650; J2250; J3010; J3490; J7030; Q0163; Q9967

== ENCOUNTER → 2019-09-05 14:20 | Outpatient (BNVA) | payer MEDICARE, BC, SELFPAY | PROVIDERS: PCP Family Medicine; Visit Provider Internal Medicine Cardiovascular Disease | DX: Z98.890 Other specified postprocedural states (principal) | CPT/HCPCS: 80048 ==

== ENCOUNTER 2019-10-05 09:36 | Outpatient (RCR) | payer MEDICARE, BC, SELFPAY | END 2019-10-16 23:59 | disposition home or self-care (01) | LOC: SPT 09:36 | PROVIDERS: PCP Family Medicine; Referring Provider Family Medicine; Visit Provider Family Medicine | DX: M54.6 Pain in thoracic spine (principal) | CPT/HCPCS: 97032; 97110; 97162 ==

== ENCOUNTER 2019-10-17 06:00 | Outpatient (RCR) | payer MEDICARE, BC, SELFPAY | END 2019-11-15 23:59 | disposition home or self-care (01) | LOC: SPT 06:00 | PROVIDERS: PCP Family Medicine; Referring Provider Family Medicine; Visit Provider Family Medicine | DX: M54.6 Pain in thoracic spine (principal) | CPT/HCPCS: 97032; 97110; G0283 ==

== ENCOUNTER 2019-11-22 14:28 | Outpatient (RCR) | payer MEDICARE, BC, SELFPAY | END 2019-12-16 23:59 | disposition home or self-care (01) | LOC: SPT 14:28 | PROVIDERS: PCP Family Medicine; Referring Provider Family Medicine; Visit Provider Family Medicine | DX: M54.6 Pain in thoracic spine (principal) | CPT/HCPCS: 97110; G0283 ==

== ENCOUNTER 2020-03-05 06:59 | Outpatient (CLI) | payer MEDICARE, BC, SELFPAY ==
--- NOTE | 2020-03-05 07:00 | XRR_ITS ---
PROCEDURE INFORMATION: Exam: XR Abdomen, 1 View Exam date and time: 03/05/2020 7:12 AM Age: 74 years old Clinical indication: Condition or disease; Kidney or ureter condition; Calculus (stone) in kidney; Additional info: Kidney stone TECHNIQUE: Imaging protocol: XR of the abdomen. Views: Frontal supine view of the abdomen. 1 View. COMPARISON: CT angio chest abdomen pelvis 08/24/2019 7:25 PM FINDINGS: Gastrointestinal tract: Nonobstructive bowel gas pattern. Stool in colon greater in right colon. Organs: Two renal calculi identified on prior CT. The mid lateral right renal calculi is identified on plain films. The lower pole stone is not well visualized, but there is overlying bowel gas limiting evaluation. Bones/joints: There are bilateral hip replacements. XR/XR KUB [id number] IMPRESSION: One of the two previously seen right renal calculi seen on CT is visualized on x-ray. Limited by overlying bowel contents
== END 2020-03-05 07:00 | disposition home or self-care (01) ==
LOC: RAD 07:02
PROVIDERS: PCP Family Medicine; Visit Provider Urology
DX: N20.0 Calculus of kidney (principal)
CPT/HCPCS: 74018

== ENCOUNTER 2020-03-08 08:47 | Outpatient (CLI) | payer MEDICARE, BC, SELFPAY ==
--- NOTE | 2020-03-08 09:00 | CT_ITS ---
WS: [id number] CT ABDOMEN AND PELVIS NONCONTRAST HISTORY: RENAL STONES TECHNIQUE: Imaging performed through the abdomen and pelvis. Coronal and sagittal reformats are submi tted. All CT scans at [facility] use at least one of these dose optimization techniques: automated exposure control; mA and/or kV adjustment per patient size (includes targeted exams where d ose is matched to clinical indication); or iterative reconstruction. DLP: 954.75 mGy.cm COMPARISON: 08/24/2019 Lower thorax: Lung bases are clear. Visualized heart is normal. No hiatal hernia. Liver: Mild hepatic steatosis. No mass or bile duct dilatation. Gallbladder: Normal gallbladder. Pancreas: Normal size and attenuation. Normal pancreatic duct. No pancreatitis or mass. Spleen: Granulomatous, normal size. Adrenal glands: Normal. No mass. Right kidney: Normal size RIGHT kidney. There are several nonobstructing calcifications in the renal pelvis. Largest calcification measures 5 mm in the mid kidney. New hydronephrosis. Hydronephrosis is mild in the RIGHT ureter is dilated throughout its course. The distal RIGHT ureter is being completel y obscured by artifact from the patient's bilateral hip prostheses. Suspect there is probably distal row of calcifications measuring 6 mm. Left kidney: Normal size kidneys with several small nonobstructing calcifications. No hydronephrosis. Aorta: Mild atherosclerosis abdominal aorta with no aneurysm. No free fluid, intraperitoneal air or significant lymphadenopathy. GI tract: Normal appendix. No obstruction. Abdominal wall: Small fat-containing umbilical hernia. Pelvis: Significant beam hardening artifact in the pelvis from the patient's bilateral hip arthroplas ties. Osseous structures: L4 anterolisthesis by 5 mm. Bilateral hip arthroplasties. CT/CT kidney stone [id number] IMPRESSION: 1. New mild RIGHT hydroureteronephrosis. There is significant beam hardening a rtifact from the patient's bilateral hip prostheses through the pelvis. After a dditional windowing of the CT I believe there is probably a linear group of xander cifications measuring 6 mm in the distal ureter. 2. Nonobstructing bilateral nephrolithiasis.
== END 2020-03-08 08:48 | disposition home or self-care (01) ==
LOC: RAD 08:55
PROVIDERS: PCP Family Medicine; Visit Provider Urology
DX: N20.0 Calculus of kidney (principal); N13.30 Unspecified hydronephrosis; N20.1 Calculus of ureter
CPT/HCPCS: 74176; 81003; 87635

== ENCOUNTER 2020-03-11 14:49 | Day surgery (SDC) | payer MEDICARE, BC, SELFPAY ==
[2020-03-08 15:40] VITALS: BMI 26.9
--- NOTE | 2020-03-11 | SCC_ITS ---
Procedure Done: Cystoscopy, right retrograde ureteropyelogram, ureteroscopy, laser, stent (6 Romanian by 24 cm double-pigtail with no string 28.0 seconds of fluoroscopic guidance, for a cumulative dose of 6.06 mGy, was provided to Dr. Marlow by the radiology department. C-arm images of the - abdomen and pelvis were saved for the patient's permanent record. [facility]
--- NOTE | 2020-03-11 15:10 | SC_ITS ---
WS: [id number] INTRAOPERATIVE TECHNIQUE: 3 Spot fluoroscopic images for intraoperative purposes. FLUOROSCOPY TIME: 28.0 seconds CLINICAL INFORMATION: Right ureteroscopy COMPARISON: None. FINDINGS: Right double-J ureteral stent. Right ureteroscopy with contrast injection. Partially visualized right DAVID. SC/C-arm FL for Urology IMPRESSION: Images obtained for intraoperative purposes.
--- NOTE | 2020-03-11 15:10 | XR_ITS ---
WS: [id number] Exam: XR KUB [id number] Date/Time of Exam: 03/11/2020 3:37 PM Reason For Exam: Preop right ureteroscopy Comparison 03/05/2020. Small calcification superimpose both renal silhouettes and most likely represent renal calculi. No neida wel obstruction or free air. Visualized organ margins are intact. Moderate amount stool in the colon. Bilateral total hip replacements. XR/XR KUB [id number] IMPRESSION: 1. Small calcification superimpose both renal silhouettes most likely represent ing small renal calculi. 2. No acute abdominal finding.
[2020-03-11 16:06] VITALS: BP 107/66; PULSE 88; RESP 18; TEMP 36.4; O2SAT 97
--- NOTE | 2020-03-11 16:31 | ANES.PREANE2 ---
Pre-Anesthetic Assessment Pre-Anesthetic Assessment: Height/Weight: Height 1.6 m Weight 68.946 kg Temp Pulse Resp BP Pulse Ox 97.5 F L 88 18 107/66 97 03/11/20 16:06 03/11/20 16:06 03/11/20 16:06 03/11/20 16:06 03/11/20 16:06 Preop Diagnosis: Refractory right distal ureteral stone Proposed Procedure: Operation Date: 03/11/20 15:25 Proposed Procedures p Cystoscopy(Not Applicable) - Randal Marlow MD s Retrograde Pyelogram(Right) - MD durga Martinez Ureteroscopy(Not Applicable) - Randal Marlow MD s Laser Lithotripsy(Not Applicable) - Randal Marlow MD s Ureteral Stent Placement(Not Applicable) - Randal Marlow MD Was Beta Jamila taken within 24 hours: N/A Last intake: Intake Last Liquid Date 03/11/20 Last Liquid Time 10:00 Last Solid Date 03/10/20 Last Solid Time 23:30 Social: Social History: Tobacco and No alcohol Exam: Pre-Anes Outpt Exam: alert, oriented x 3 and regular rate & rhythm Additional Exam Findings (including area of procedure): Rhonchi Airway: Submandibular: WNL Cervical ROM: WNL MP: 2 Dentition: False Pulmonary: Pulmonary: Cough and Sleep apnea CV/HEM: CV/HEM: Angina (Stable), CAD and HTN GI: GI: GERD Neuropsych: Neuropsych: TIA Anesthetic Plan: ASA status: 3 Anesthesia: General Risk of > 500 ml blood loss (7ml/kg in children): No PFSH Anesthesia PFSH: Medical History COPD (chronic obstructive pulmonary disease) CVA (cerebral vascular accident) Hydronephrosis, right IBS (irritable bowel syndrome) Obstructive sleep apnea Renal stones Seizures Tobacco abuse Surgical History S/P cataract surgery S/P hip replacement Right and Left S/P knee replacement Left Family History Other Heart disease Myocardial infarction Social History Smoking and tobacco status: current every day smoker cigarettes Packs smoked per day: 2 Alcohol intake: current Alcohol intake frequency: holidays/special occasions only Marital status: / Current occupational status: retired Data Anesthesia Cardiac Studies: No Data to Display
[2020-03-11] MEDS: sodium chloride 0.9% 1,000 ML 30 ML IV (16:44)
--- NOTE | 2020-03-11 17:14 | P.HPUD_ITS ---
Surgery/Procedure H&P Update DATE OF PROCEDURE: March 11, 2020 DATE H&P PERFORMED: 03/08/20 H&P UPDATE INFORMATION: I have reviewed H&P completed within last 30 days, I have examined patient prior to procedure, No changes to prior documentation and H&P is in [facility] EMR on date indicated CHANGES TO PREVIOUS DOCUMENTATION: Stone still in same position. PREOP DIAGNOSIS: Refractory right distal ureteral stone PLANNED PROCEDURE: Operation Date: 03/11/20 15:25 Proposed Procedures p Cystoscopy(Not Applicable) - Randal Marlow MD s Retrograde Pyelogram(Right) - MD durga Martinez Ureteroscopy(Not Applicable) - MD durga Martinez Laser Lithotripsy(Not Applicable) - Randal Marlow MD s Ureteral Stent Placement(Not Applicable) - Randal Marlow MD
--- NOTE | 2020-03-11 17:17 | P.OP_ITS ---
Operative Report Date of procedure: March 11, 2020 Pre-op Diagnosis: Refractory right distal ureteral stone Post-op diagnosis: same Procedure Done: Cystoscopy, right retrograde ureteropyelogram, ureteroscopy, laser, stent (6 Tunisian by 24 cm double-pigtail with no string Pathology: none sent Surgeon: [place] Anesthesia: General Estimated blood loss: Less than 5 cc Urine output: Not measured Complications: None Findings: Stone in the expected position. Fragmented completely. Removed without difficulty. 6 Tunisian by 24 cm double-pigtail stent left indwelling. No string. Condition: stable Disposition: PACU Brief History: 74-year-old white female with a history of right renal colicky symptoms and a suspicious calcification not previously seen on prior imaging in the area of the right distal ureter. She is a known stone former. A follow-up CT scan confirmed she had an obstruction down to the right distal ureter in the area of where the calcification was seen but it was hard to completely and definitively identify because of significant artifact related to her artificial hips. She was still having symptoms and ultimately elected to proceed with ureteroscopic treatment of the stone. Procedure: After routine preoperative evaluation examination and obtaining of informed consent she was taken to the operating suite on 03/11/2026 where general anesthesia was administered without difficulty after appropriate timeout was performed, SCDs confirmed to be functioning, preoperative antibiotics administered, beta-anne protocol confirmed. Prepped and draped in usual sterile fashion in dorsolithotomy position paying careful attention to avoiding pressure points. 21 Tunisian cystoscope with 30 degree lens was introduced into the urethral meatus and advanced into the bladder to videoscopy. The bladder was systematically examined. No stones were seen. An 8 Tunisian cone-tipped catheter was intubated into the right ureteral orifice for right retrograde ureteropyelogram demonstrating: Filling defect consistent with a stone seen on previous imaging. The ureter proximal to that point was somewhat tortuous and dilated. The pyelocalyceal system was quite dilated. Flexible tip guidewire was then advanced up the right ureter but could not easily bypassed the stone. The 7 Tunisian offset semirigid ureteroscope was advanced up the right ureter to the stone which allowed easy passage of the wire next to the stone curling in the area of the renal pelvis. The stone was then fragmented with a 365 ?m thulium superpulse laser fiber into small pieces that were then flushed and removed with basket. Final inspection showed no residual fragments but did show some inflammation where the stone had been located and therefore was decided to leave a stent indwelling. A 6 Tunisian by 24 cm double pigtail stent was advanced over the guidewire through the cystoscope into appropriate position as confirmed via fluoroscopy and cystoscopy. The bladder was drained. She tolerated procedure well without complications and was awakened in the operating room and returned to recovery room in stable condition with plans for discharge from outpatient surgery. Anticipate following up in the office late this week for cystoscopy and stent removal.
[2020-03-11] MEDS: levofloxacin-dextrose 5 % 500 MG/100 ML PREMIX 100 MG IV (17:37)
[2020-03-11] MEDS: iohexol 300 mg/mL 50 mL Btl (OR ONLY) XX (17:55)
[2020-03-11 18:26] VITALS: BP 108/62; PULSE 93; RESP 18; TEMP 36.4; O2SAT 98
[2020-03-11 18:30] VITALS: BP 104/57; PULSE 89; RESP 15; O2SAT 96
[2020-03-11 18:35] VITALS: BP 118/64; PULSE 87; RESP 17; TEMP 36.5; O2SAT 96
[2020-03-11 18:53] VITALS: BP 114/75; PULSE 91; RESP 18; TEMP 36.6; O2SAT 96
[2020-03-11 19:21] VITALS: BP 135/76; PULSE 82; RESP 18; O2SAT 95
--- NOTE | 2020-03-11 19:54 | ANE.PACU2 ---
Inpatient post-anesthesia follow up: Airway intact: Yes Vital signs: Temperature 97.8 F Pulse Rate 82 Respiratory Rate 18 Blood Pressure 135/76 Pulse Oximetry 95 Oxygen Delivery Me thod Room Air Oxygen Flow Rate 8 Fraction of Inspir ed Oxygen Hydration adequate: Yes Nausea and vomiting: No Pain level: 2 Mental status: Baseline
[2020-03-19 20:38] LABS: Stone Source RIGHT URETER
== END 2020-03-11 19:20 | disposition home or self-care (01) ==
PROVIDERS: PCP Family Medicine; Visit Provider Urology
PROC: 0TJB8ZZ Inspection of Bladder, Via Natural or Artificial Opening Endoscopic (ICD-10-PCS; CPT 52000; principal; 2020-03-11 15:25)
PROC: (CPT 74420; 2020-03-11 15:25)
PROC: 0TJ98ZZ Inspection of Ureter, Via Natural or Artificial Opening Endoscopic (ICD-10-PCS; CPT 52351; 2020-03-11 15:25)
PROC: (CPT 52356; 2020-03-11 15:25)
PROC: (CPT 50605; 2020-03-11 15:25)
DX: N20.1 Calculus of ureter (principal); I25.10 Atherosclerotic heart disease of native coronary artery without angina pectoris; I10 Essential (primary) hypertension; K21.9 Gastro-esophageal reflux disease without esophagitis; Z86.73 Personal history of transient ischemic attack (TIA), and cerebral infarction without residual deficits; J44.9 Chronic obstructive pulmonary disease, unspecified; G47.33 Obstructive sleep apnea (adult) (pediatric); F17.210 Nicotine dependence, cigarettes, uncomplicated
CPT/HCPCS: 52356; 12345; 74018; 76000; 82365; 88300; C2625; J1956; J2704; J3010; J3490; J7030

== ENCOUNTER → 2020-03-15 12:01 | Outpatient (BNVA) | payer MEDICARE, BC, SELFPAY | PROVIDERS: PCP Family Medicine; Visit Provider Urology | DX: N20.1 Calculus of ureter (principal); N13.30 Unspecified hydronephrosis; Z96.0 Presence of urogenital implants | CPT/HCPCS: 81003 ==

== ENCOUNTER 2020-09-17 12:59 | Outpatient (CLI) | payer MEDICARE, BC, SELFPAY ==
--- NOTE | 2020-09-17 13:15 | XR_ITS ---
WS: [id number] KUB, AP view, 09/17/2020 Clinical Data: URETERAL CALCULUS Comparison: KUB, 03/11/2020. Findings: No abnormal intraabdominal masses are seen. There is no dilatated small bowel or evidence of obstruc tion. There are calcifications overlying the kidneys. However details obscured by overlying colon gas and f ecal material. Bilateral hip arthroplasties are in place. XR/XR KUB [id number] Impression: Possible bilateral renal calculi.
== END 2020-09-17 13:00 | disposition home or self-care (01) ==
PROVIDERS: PCP Family Medicine; Visit Provider Urology
DX: N20.1 Calculus of ureter (principal)
CPT/HCPCS: 74018; 81003; 87086

== ENCOUNTER 2020-10-16 14:25 | Outpatient (CLI) | payer MEDICARE, BC, SELFPAY ==
--- NOTE | 2020-10-16 15:28 | XR_ITS ---
WS: [id number] PROCEDURE: XR chest 2V* [id number] CLINICAL INFORMATION: CHEST DISCOMFORT,ATYPICAL COMPARISON: August 24, 2019 FINDINGS: Heart: Normal cardiac silhouette. Aortic calcification. Lungs: Lungs are clear. No consolidation or pleural fluid. Moderate chronic emphysematous changes. No acute pulmonary infiltrates. No focal pneumonia or pleural fluid. Bones: Mild thoracic curve. XR/XR chest 2V* [id number] IMPRESSION: No acute chest findings.
== END 2020-10-16 14:26 | disposition home or self-care (01) ==
PROVIDERS: PCP Family Medicine; Visit Provider Clinical Nurse Specialist Adult Health
DX: R07.89 Other chest pain (principal)
CPT/HCPCS: 71046

== ENCOUNTER 2020-10-31 11:32 | Outpatient (CLI) | payer MEDICARE, BC, SELFPAY ==
--- NOTE | 2020-10-31 11:41 | CT_ITS ---
WS: [id number] LDCT LUNG CANCER SCREENING HISTORY: TOBACCO USE TECHNIQUE: Axial imaging performed from the apices to 1 cm below the costophrenic angles. Coronal and sagittal reformats are submitted with axial MIP series. All CT scans at [facility] use at least one of these dose optimization techniques: automated exposure control; mA and/or kV adjustment per patient size (includes targeted exams where dose is matched to clinical indication); or iterativ e reconstruction. DLP: 51.81 mGy.cm DIvol: 1.58 mGy COMPARISON: 08/24/2019 Diagnostic quality: Satisfactory Lung Nodules: No endobronchial lesions or nodules. Lungs: Very mildly prominent pulmonary artery 3.4 cm. Mild atherosclerosis aorta. Heart: Mildly enlarged heart. No pericardial effusion. Other findings: Small hiatal hernia. CT/CT lung screening [id number] IMPRESSION: LUNG-RADS: 1-Negative FOLLOW UP: 12 Month: Continue annual screening with LDCT OTHER FINDINGS (S MODIFIER): None.
== END 2020-10-31 11:33 | disposition home or self-care (01) ==
PROVIDERS: PCP Family Medicine; Visit Provider Clinical Nurse Specialist Adult Health
DX: Z12.2 Encounter for screening for malignant neoplasm of respiratory organs (principal); Z87.891 Personal history of nicotine dependence
CPT/HCPCS: 71271

== ENCOUNTER 2021-03-07 03:34 | Emergency (ER) | payer MEDICARE, BC, SELFPAY ==
[2021-03-07 03:35] VITALS: BP 167/86; PULSE 85; RESP 16; TEMP 36.7; O2SAT 98; BMI 26.5
--- NOTE | 2021-03-07 03:41 | CTR_ITS ---
PROCEDURE INFORMATION: Exam: CT Head Without Contrast Exam date and time: 03/07/2021 3:41 AM Age: 75 years old Clinical indication: Malaise or fatigue; Patient HX: General weakness with insomnia. ; Additional info: Weak TECHNIQUE: Imaging protocol: Computed tomography of the head without contrast. Radiation optimization: All CT scans at this facility use at least one of these dose optimization techniques: automated exposure control; mA and/or kV adjustment per patient size (includes targeted exams where dose is matched to clinical indication); or iterative reconstruction. COMPARISON: CT head wo con* [id number] 12/31/2018 7:32 AM RADIATION DOSE METRICS: Total DLP (mGy-cm): 755.37 FINDINGS: Brain: There is mild diffuse cerebral atrophy. Patchy areas of hypoattenuation are seen in the deep white matter of the cerebral hemispheres bilaterally compatible with deep white matter microvascular disease. Focal hypoattenuation seen within the basal ganglia on the left and within the frontal white matter bilaterally possibly representing chronic infarctions as well. Cerebral ventricles: No ventriculomegaly. Paranasal sinuses: Visualized sinuses are unremarkable. No fluid levels. Mastoid air cells: Visualized mastoid air cells are well aerated. Bones/joints: Unremarkable. No acute fracture. Soft tissues: Unremarkable. CT/CT head wo con* [id number] IMPRESSION: There are no acute intracranial findings. Stable head CT compared with 12/31/2018.
--- NOTE | 2021-03-07 03:41 | XRR_ITS ---
PROCEDURE INFORMATION: Exam: XR Chest Exam date and time: 03/07/2021 3:41 AM Age: 75 years old Clinical indication: Patient HX: General weakness. History of copd. TECHNIQUE: Imaging protocol: XR of the chest. Views: 1 view. COMPARISON: CR XR chest 2V* [id number] 10/16/2020 3:33 PM FINDINGS: Lungs: Unremarkable. No consolidation. Pleural spaces: Unremarkable. No pleural effusion. No pneumothorax. Heart/Mediastinum: Unremarkable. No cardiomegaly. Bones/joints: Unremarkable. XR/XR chest 1V portable [id number] IMPRESSION: No acute findings.
--- NOTE | 2021-03-07 03:42 | ECG_ITS ---
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 Measurements Intervals [place] Rate: 65 P: 60 MS: 191 QRS: -22 QRSD: 82 T: 27 QT: 391 QTc: 407 Interpretive Statements SINUS RHYTHM POSSIBLE LEFT ATRIAL ENLARGEMENT [-0.1mV P-WAVE IN V1/V2] LOW QRS VOLTAGE IN PRECORDIAL LEADS [QRS DEFLECTION < 1.0 mV IN CHEST LEADS] POSSIBLE RIGHT VENTRICULAR CONDUCTION DELAY [RSR (QR) IN V1/V2] POSSIBLE ANTERIOR MYOCARDIAL INFARCTION , OF INDETERMINATE AGE [30 ms Q WAVE IN V3/V4, OR R < 0.2 mV IN V4] Compared to ECG 08/24/2019 22:31:26 Myocardial infarct finding now present Sinus bradycardia no longer present First degree AV block no longer present T-wave abnormality no longer present Possible ischemia no longer present Electronically Signed On 03-08-2021 14:06:50 TELEVISION MAINTENANCE WORKER by Jluis Luo M.D. [email or web address]
--- NOTE | 2021-03-07 03:43 | ED_ITS ---
HPI - Neuro Symptoms/Deficit General: Chief Complaint: Weakness Stated Complaint: weakness Time Seen by Provider: 03/07/21 03:38 Source: patient Mode of arrival: ambulatory Limitations: no limitations History of Present Illness: HPI Narrative: 75-year-old female has a history of insomnia she states she has not slept last 2 nights been having hard time going to sleep tonight. She states that she has been having feelings of doom throughout the day and feeling extremely weak and tired. She states she has felt fuzzy in her head states that tonight she started feeling weaker have a mild headache and was concerned she was going to have a stroke. States she had the symptoms in the past with her insomnia and has had TIAs she has no slurred speech no focal deficits whatsoever denies any chest pain denies any worsening proving factors. Associated symptoms: Deny chest pain, headache(s), nausea or vomiting Review of Systems Const: Denies: fever(s), chills, body aches or change in appetite Eyes: Denies: blurry vision or eye discomfort ENMT: Denies: throat pain or dental pain Card: Denies: chest pain Resp: Denies: dyspnea GI: Denies: abdominal pain, nausea, vomiting or diarrhea : Denies: dysuria Musc: Denies: neck pain or back pain Skin/Breast: Denies: rash Neuro: Reports: weakness in extremities; Denies: headache(s) Psych: Denies: depression Junito/Lymph: Denies: easy bruising All/Imm: Denies: urticaria PFSH ED PFSH: Medical History COPD (chronic obstructive pulmonary disease) CVA (cerebral vascular accident) Hydronephrosis, right IBS (irritable bowel syndrome) Obstructive sleep apnea Renal calculus, bilateral Renal stones Seizures Tobacco abuse Surgical History S/P cataract surgery S/P hip replacement Right and Left S/P knee replacement Left Family History Other Heart disease Myocardial infarction Social History Alcohol intake: current Alcohol intake frequency: holidays/special occasions only Marital status: / Current occupational status: retired NIH stroke score NIHSS: Level Of Consciousness - 1a: 0 Level Of Consciousness Questions - 1b: Both Correct Level Of Consciousness Commands - 1c: Both Correct Best Gaze - 2: Normal Visual Ball - 3: No Visual Loss Facial Palsy - 4: Normal Motor Arm Right - 5: No Drift Motor Arm Left - 5: No Drift Motor Leg Right - 6: No Drift Motor Leg Left - 6: No Drift Limb Ataxia - 7: Absent Sensory - 8: Normal Best Language - 9: No Aphasia Dysarthia - 10: Normal Extinction And Inattention - 11: 0 Score: Total Score: 0 Physical Exam Const: COMMON NORMALS: no acute distress, patient oriented x3 and healthy appearing HENMT: COMMON NORMALS: normocephalic and atraumatic HEAD & SCALP: normocephalic and atraumatic Eye: COMMON NORMALS: Equal, round and reactive pupils present and EOMs intact bilaterally PUPIL: Yes Equal, round and reactive pupils present Neck/C-Spine: COMMON NORMALS: full ROM and supple Chest: COMMONS NORMALS: normal inspection of the chest and normal palpation of entire chest wall Resp: COMMON NORMALS: normal respiratory effort, No retractions, No use of accessory muscles and clear to auscultation bilaterally AUSCULTATION: clear to auscultation bilaterally Cardio: COMMON NORMALS: regular rate, regular rhythm and No murmurs present (Cardio) RATE: regular rate RHYTHM: regular rhythm GI: COMMON NORMALS: Normal to inspection, nondistended, normoactive bowel sounds present, Soft to palpation, non-tender and no masses PALPATION: Yes Soft to palpation Extremity: COMMON NORMALS: normal to inspection and full ROM Neuro: COMMON NORMALS: patient oriented x3, moves all extremities and no focal motor deficits Psych: COMMON NORMALS: mental status grossly normal, Normal thought process present and cooperative THOUGHT PROCESS: Normal thought process present Skin: COMMON NORMALS: no rashes or lesions noted and no wounds GENERAL SKIN EXAM: no rashes or lesions noted Course Vital Signs: Vital signs: Vital Signs Temperature 98.1 F 03/07/21 03:35 Pulse Rate 71 03/07/21 04:35 Respiratory Rate 18 03/07/21 04:35 Blood Pressure 152/71 03/07/21 04:35 Pulse Oximetry 97 03/07/21 04:35 MDM - Neuro Symptoms/Deficit MDM Narrative: Medical decision making narrative: Patient presents here with weakness along with some anxiety she has been well-appearing here no focal neurologic deficits her head CT is normal she feels improved she is stable for discharge is to follow-up PCP and return if worsening. Lab Data: Labs: Lab Results 03/07/21 03/07/21 03/07/21 04:00 04:00 04:12 WBC 9.6 10^3/uL 10^3/ uL (4.0-10.0) RBC 4.50 10^6/uL 10^6 /uL (4.1-5.3) Hgb 13.8 g/dL g/dL (11.5-15.3) Hct 41.8 % % (37.0-47.0) MCV 92.9 fl fl (81-99) MCH 30.7 pg pg (28.0-34.0) MCHC 33.0 g/dL g/dL (30.0-36.0) RDW 14.0 % % (12.1-15.1) Plt Count 219 10^3/cmm 10^3 /cmm (130-400) MPV 8.8 fL fL (7.4-10.4) Neut % (Auto) 78.7 % % Lymph % (Auto) 12.6 % % [place] % (Auto) 6.5 % % Eos % (Auto) 1.4 % % Baso % (Auto) 0.5 % % Neut # (Auto) 7.57 10^3/uL 10^3 /uL (1.8-7.7) Lymph # (Auto) 1.2 10^3/uL 10^3/ uL (0.8-4.8) [place] # (Auto) 0.6 10^3/uL 10^3/ uL (0.2-0.9) Eos # (Auto) 0.1 10^3/uL 10^3/ uL (0.0-0.8) Baso # (Auto) 0.1 10^3/uL 10^3/ uL (0.0-0.1) Nucleated RBC % (a uto) 0 % % Nucleated RBCs # 0.0 /100WBC /100W BC Sodium 139 mmol/L mmol/L (136-145) Potassium 3.6 mmol/L mmol/L (3.5-5.1) Chloride 104 mmol/L mmol/L (98-107) Carbon Dioxide 24 mmol/L mmol/L (22-29) Anion Gap 14.6 (5-19) BUN 8 mg/dL mg/dL (8-23) Creatinine 0.8 mg/dL mg/dL (0.5-0.9) GFR Calculation Not Reportable Glucose 108 mg/dL mg/dL (65-115) Calculated Osmolal ity 287 mOsm/kg mOsm/ kg (285-295) Calcium 9.1 mg/dL mg/dL (8.5-10.5) Total Bilirubin 0.2 mg/dL mg/dL (0.15-1.2) AST 13 U/L U/L (0-32) ALT 8 U/L U/L (0-33) Alkaline Phosphata se 110 IU/L H IU/L (35-105) Total Protein 6.8 g/dL g/dL (6.6-8.7) Albumin 4.5 g/dL g/dL (3.5-5.2) Globulin 2.3 g/dL g/dL (1.3-4.6) Urine Color Urine Appearance Urine pH Ur Specific Gravit y Urine Protein Urine Glucose (UA) Urine Ketones Urine Blood Urine Nitrate Urine Bilirubin Prot Sulfosalicyli c Acd Urine Urobilinogen Ur Leukocyte Nery ase SARS-CoV-2 Ag (Rap id) Negative (Negative) 03/07/21 04:48 WBC RBC Hgb Hct MCV MCH MCHC RDW Plt Count MPV Neut % (Auto) Lymph % (Auto) [place] % (Auto) Eos % (Auto) Baso % (Auto) Neut # (Auto) Lymph # (Auto) [place] # (Auto) Eos # (Auto) Baso # (Auto) Nucleated RBC % (a uto) Nucleated RBCs # Sodium Potassium Chloride Carbon Dioxide Anion Gap BUN Creatinine GFR Calculation Glucose Calculated Osmolal ity Calcium Total Bilirubin AST ALT Alkaline Phosphata se Total Protein Albumin Globulin Urine Color Colorless (Yellow) Urine Appearance Clear (CLEAR) Urine pH 8 H (5-7) Ur Specific Gravit y 1.005 (1.005-1.030) Urine Protein Neg (Negative) Urine Glucose (UA) Norm (Normal) Urine Ketones Negative (Negative) Urine Blood Neg (Negative) Urine Nitrate Negative (Negative) Urine Bilirubin Neg (Negative) Prot Sulfosalicyli c Acd Negative (Negative) Urine Urobilinogen Norm mg/dL mg/dL (Negative) Ur Leukocyte Nery ase Negative (Negative) SARS-CoV-2 Ag (Rap id) Imaging Data^: CT Head: Attestation: I personally reviewed and interpreted this imaging study as follows: Radiologist's impression: There are no acute intracranial findings. Stable head CT compared with 12/31/2018. CXR: Radiologist's impression: XR/XR chest 1V portable [id number] IMPRESSION: No acute findings. EKG Data^: EKG 1: Attestation: I personally reviewed and interpreted this EKG as follows: EKG interpretation date: 03/07/21 EKG interpretation time: 03:50 Interpretation: nsr hr [address] or t wave abnormalities qrs 82 qtc 402 Discharge Plan Discharge Patient Disposition: Home Clinical Impression: Weakness Condition: Stable Prescriptions: No Action clopidogrel 75 mg tablet 75 mg PO DAILY RF: 0 rosuvastatin 20 mg tablet 20 mg PO BEDTIME RF: 0 zonisamide 100 mg capsule 200 mg PO BID RF: 0 isosorbide mononitrate 10 mg tablet 20 mg PO ONCE RF: 0 aspirin [Adult Low Dose Aspirin] 81 mg tablet,delayed release (DR/EC) 81 mg PO DAILY RF: 0 multivitamin [Multiple Vitamins] Tablet 1 tab PO DAILY RF: 0 acetaminophen [Tylenol Extra Strength] 500 mg Tablet 500 mg PO PRN RF: 0 pantoprazole [Protonix] 40 mg Tablet,Delayed Release (Dr/Ec) 40 mg PO DAILY RF: 0 nitroglycerin [Nitrostat] 0.4 mg Tablet, Sublingual 0.4 mg SUBLINGUAL Q5M PRN (Reason: Chest Pain) RF: 0 [place] 5-325 mg tablet 1 tab PO Q8H PRN (Reason: pain) Qty: 12 RF: 0 Discharge Orders: Discharge ED (Routine); Ordered 03/07/21 Ordered By: Tony Del Toro Referrals: Remberto Rock MD [Primary Care Provider] - 1-3 days Discharge Diet: Advance as tolerated Discharge Activity: Resume usual activity Patient Instructions: Weakness (ED) Coding Level of Care Code ED Carbonation Equipment Tender for Chg Fwd Exam Comprehensive
[2021-03-07 04:05] LABS: Basophils # 0.1 10^3/uL (0.0-0.1); Basophils % 0.5 %; Eosinophils # 0.1 10^3/uL (0.0-0.8); Eosinophils % 1.4 %; Hematocrit 41.8 % (37.0-47.0); Hemoglobin 13.8 g/dL (11.5-15.3); Lymphocytes # 1.2 10^3/uL (0.8-4.8); Lymphocytes % 12.6 %; Mean Corpuscular Hemoglobin 30.7 pg (28.0-34.0); Mean Corpuscular Volume 92.9 fl (81-99); Mean Platelet Volume 8.8 fL (7.4-10.4); Monocytes # 0.6 10^3/uL (0.2-0.9); Monocytes % 6.5 %; Neutrophils # 7.57 10^3/uL (1.8-7.7); Neutrophils % 78.7 %; Nucleated Red Blood Cells % 0 %; Platelet Count 219 10^3/cmm (130-400); White Blood Count 9.6 10^3/uL (4.0-10.0)
[2021-03-07 04:23] LABS: Alanine Aminotransferase 8 U/L (0-33); Albumin Level 4.5 g/dL (3.5-5.2); Alkaline Phosphatase 110 IU/L (35-105); Anion Gap 14.6 (5-19); Aspartate Amino Transferase 13 U/L (0-32); Blood Urea Nitrogen 8 mg/dL (8-23); Calcium 9.1 mg/dL (8.5-10.5); Carbon Dioxide 24 mmol/L (22-29); Chloride 104 mmol/L (98-107); Creatinine Clr Calc Pharmacy 57.1281; Globulin 2.3 g/dL (1.3-4.6); Glucose 108 mg/dL (65-115); Osmolality Calculated 287 mOsm/kg (285-295); Potassium 3.6 mmol/L (3.5-5.1); Sodium 139 mmol/L (136-145); Total Bilirubin 0.2 mg/dL (0.15-1.2); Total Protein 6.8 g/dL (6.6-8.7)
[2021-03-07 04:32] LABS: SARS Covid-2 Antigen Negative (Negative)
[2021-03-07 04:35] VITALS: BP 152/71; PULSE 71; RESP 18; O2SAT 97
[2021-03-07 04:59] LABS: Add Urine Microscopic? NO; Charge for UA Resulting for Rev
[2021-03-07 05:14] LABS: Bilirubin Urine Neg (Negative); Blood Urine Neg (Negative); Glucose Urine UA Norm (Normal); Ketones Urine Negative (Negative); Leukocyte Esterase Urine Negative (Negative); Nitrate Urine Negative (Negative); Protein Urine Neg (Negative); Specific Gravity, Urine 1.005 (1.005-1.030); Sulfosalicylic Acid Urine Negative (Negative); Urine Appearance Clear (CLEAR); Urine Color Colorless (Yellow); Urobilinogen Urine Norm (Negative); pH Urine 8 (5-7)
== END 2021-03-07 05:28 | disposition home or self-care (01) ==
PROVIDERS: Emergency Provider Emergency Medicine; PCP Family Medicine
DX: R53.1 Weakness (principal); Z79.02 Long term (current) use of antithrombotics/antiplatelets; Z79.82 Long term (current) use of aspirin; J44.9 Chronic obstructive pulmonary disease, unspecified; Z86.73 Personal history of transient ischemic attack (TIA), and cerebral infarction without residual deficits; Z20.822 Contact with and (suspected) exposure to COVID-19
CPT/HCPCS: 70450; 71045; 80053; 81003; 85025; 87426; 93005; 99283

== ENCOUNTER 2021-09-23 15:05 | Outpatient (CLI) | payer MEDICARE, BC, SELFPAY ==
--- NOTE | 2021-09-23 15:09 | XR_ITS ---
WS: [id number] DEXA (DUAL ENERGY X-RAY ABSORPTIOMETRY) Bone mineral density was performed using a [employer] machine. HISTORY: POSTMENOPAUSAL COMPARISON: 11/22/2017 Lumbar spine BMD (L1-L4): 1.153 g/cm2 T score: -0.2 Z score: 1.5 Left forearm BMD: 0.731 g/cm2. T score: -1.7 Z score: 0.6 10 year probability of a major osteoporotic fracture is Compared to the prior study from 11/22/2017. Lumbar spine bone mineral density has increased by 0.2%. LEFT forearm bone mineral density has decreased by 10.7%. XR/XR DEXA axial skeleton* [id number] IMPRESSION: OSTEOPENIA based upon the WHO classification for females. Significant decrease in bone mineral density within the forearm since the prior study.
--- NOTE | 2021-09-23 15:09 | MM_ITS ---
WS: [id number] BILATERAL 3D TOMOSYNTHESIS DIGITAL SCREENING MAMMOGRAPHY WITH CAD CLINICAL INFORMATION: SCREENING HISTORY: Screening mammogram. RIGHT breast soreness. COMPARISON: TECHNIQUE: Bilateral CC and MLO views. FINDINGS: Scattered fibroglandular densities bilaterally. No suspicious focal mass, asymmetry, calcifications, or architectural distortion. No evidence of malignancy. MM/[place] [id number] IMPRESSION: BI-RADS: 1-Negative FOLLOW UP: 1 Year Follow-up Recommend return to annual screening mammography.
== END 2021-09-23 15:06 | disposition home or self-care (01) ==
LOC: RAD 15:05
PROVIDERS: PCP Family Medicine; Visit Provider Family Medicine
DX: Z12.31 Encounter for screening mammogram for malignant neoplasm of breast (principal); Z78.0 Asymptomatic menopausal state; M85.80 Other specified disorders of bone density and structure, unspecified site
CPT/HCPCS: 77063; 77067; 77080

== ENCOUNTER → 2021-09-24 14:10 | Outpatient (BNVA) | payer MEDICARE, BC, SELFPAY | PROVIDERS: PCP Family Medicine; Visit Provider Internal Medicine Cardiovascular Disease | DX: R00.1 Bradycardia, unspecified (principal); R06.02 Shortness of breath; I10 Essential (primary) hypertension; R07.9 Chest pain, unspecified; I25.10 Atherosclerotic heart disease of native coronary artery without angina pectoris; Z86.73 Personal history of transient ischemic attack (TIA), and cerebral infarction without residual deficits; G47.33 Obstructive sleep apnea (adult) (pediatric); F17.210 Nicotine dependence, cigarettes, uncomplicated | CPT/HCPCS: 99214 ==

== ENCOUNTER 2021-10-06 10:11 | Outpatient (CLI) | payer MEDICARE, BC, SELFPAY ==
--- NOTE | 2021-10-06 10:25 | XRR_ITS ---
PROCEDURE INFORMATION: Exam: XR Abdomen Exam date and time: 10/06/2021 10:25 AM Age: 76 years old Clinical indication: Condition or disease; Kidney or ureter condition; Calculus (stone) in kidney; Additional info: Right ureteral calculus, yi boyer 10/06/21 @ 10:00 appt to follow TECHNIQUE: Imaging protocol: Radiologic exam of the abdomen. Views: Frontal supine view of the abdomen. 1 View. COMPARISON: CR XR KUB [id number] 09/17/2020 1:27 PM FINDINGS: Gastrointestinal tract: There is a non-obstructive bowel gas pattern. There is no abnormal dilatation of bowel loops. There is no pneumatosis or mass effect. There is no organomegaly. Intraperitoneal space: No definite free air on the supine view exam. Bones/joints: There are no acute osseous abnormalities noted. The patient is status post bilateral total hip arthroplasties. Moderate bilateral sacroiliac joint degenerative changes are seen. Some degenerative changes are seen at the L5-S1 level. Soft tissues: Punctate left kidney upper pole, mid zone and lower pole 1 mm calcific densities are seen (greater than 6). Some right kidney mid zone to lower pole 2-3 mm calcific densities are also seen. Many of these were also seen on the prior exam. Assessment is limited due to bowel gas overlying the region of the kidneys. XR/XR KUB [id number] IMPRESSION: Suspected bilateral intrarenal calculi, as noted above.
== END 2021-10-06 10:12 | disposition home or self-care (01) ==
PROVIDERS: PCP Family Medicine; Visit Provider Urology
DX: N20.1 Calculus of ureter (principal); R39.9 Unspecified symptoms and signs involving the genitourinary system; N20.9 Urinary calculus, unspecified; R30.0 Dysuria; N39.41 Urge incontinence
CPT/HCPCS: 74018; 81003; 87086; 99213

== ENCOUNTER 2022-01-13 07:25 | Outpatient (CLI) | payer MEDICARE, BC, SELFPAY ==
--- NOTE | 2022-01-13 | ECG_ITS ---
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 Interpretive Statements NAME OF STUDY: LEXISCAN SESTAMIBI STRESS TEST INDICATION: Chest Pain PROCEDURE: At the baseline, the blood pressure was 117/70 mm Hg with a heart rate of 45 bpm and oxygen saturation of 93%. The electrocardiogram showed sinus bradycardia, low QRS voltage in precordial leads. Possible left atrial enlargement with non specific T wave changes. ??? The Lexiscan was infused over a period of 20 seconds. A total of 0.4 milligrams of Lexiscan was infused. The stress phase was continued for a total of 5 minutes. Heart rate at the end of the stress phase was 63 bpm, oxygen saturation of 95% with a blood pressure of 131/51 mm Hg. The EKG at the peak infusion revealed no significant ST-T wave changes. ??? Sestamibi was injected 20 seconds after the Lexiscan infusion. ??? Blood pressure at the end of the recovery phase was 124/55 mm Hg with a heart rate of 61 beats per minute and oxygen saturation of 93%. ??? CONCLUSION: 1. No significant EKG changes with the LexiScan infusion. 2. No LexiScan induced chest pain or cardiac arrhythmia. 3. Normal blood pressure and heart rate response. 4. Sestamibi/sestamibi perfusion scan pending; see separate report. Electronically Signed On 01-17-2022 12:02:42 SUPPLIES PACKER by Natasha Mckeon M.D. [id number]
[2022-01-13 08:00] VITALS: BMI 25.7
--- NOTE | 2022-01-13 08:04 | NMCV_ITS ---
NM abilio perf SPECT r/s* [id number] Yvonne Ella Age: 76 Gender: F : 1945 Exam Date: 01/13/2022 09:01 Ordering Phys: Natasha Mckeon MD ([email or web address]) Technologist: NILA Simon Exam Location: [facility] Indications: CHEST PAIN STRESS TEST Please see separate stress test report in [facility] for full findings IMAGE PROTOCOL Rest/Stress 1 Lexiscan Day Radiopharmaceutical Dose (mCi) Administration Site Administered by Rest: Tc-99m 10.1 IV NILA Carreon Sestamibi Stress:Tc-99m 30.7 IV NILA Carreon Sestamibi Rest: 13-Jan-2022 60 Discovery 630 Stress: 13-Jan-2022 30 Discovery 630 0.4mg Lexiscan. Images obtained in supine and prone position. SPECT RESULTS Technical Quality: Excellent Raw Data Analysis: Normal Image Corrections: No attenuation or motion correction applied Summed Stress Score: 0 Summed Rest Score: 0 Summed Difference Score: 0 PERFUSION FINDINGS SPECT images demonstrate homogeneous tracer distribution throughout the myocardium. FUNCTIONAL RESULTS (calculated via Gated SPECT) Stress Image LV EF (%): 88 Stress EDV (mL):67 TID: 0.97 Stress ESV (mL):8 FUNCTIONAL FINDINGS: The left ventricle is normal in size. Transient Ischemia Dilatation of 0.97. The left ventricular ejection fraction is normal with a value of 88%. There is hyperdynamic left ventricular global systolic function. There is hyperdynamic left ventricular wall thickening. IMPRESSIONS 1. Myocardial perfusion imaging is normal. 2. Overall left ventricular systolic function is hyperdynamic without regional wall motion abnormalities, LVEF=88%. 3. EKG portion of the study will be reported separately. 4. Scan indicates low risk for cardiac events. Natasha Mckeon MD (Electronically Signed) Final Date: 14 January 2022 10:05 S
[2022-01-13] MEDS: regadenoson 0.4 Mg/5 ml Syringe IVP (09:30)
[2022-01-13 09:45] VITALS: BP 124/55; PULSE 61
== END 2022-01-13 07:26 | disposition home or self-care (01) ==
LOC: CDL 07:30
PROVIDERS: PCP Family Medicine; Visit Provider Internal Medicine Cardiovascular Disease
DX: R07.9 Chest pain, unspecified (principal)
CPT/HCPCS: 36415; 78452; 93017; 96374; A9500; J2785

== ENCOUNTER 2022-03-06 13:16 | Outpatient (CLI) | payer MEDICARE, BC, SELFPAY ==
--- NOTE | 2022-03-06 13:30 | CT_ITS ---
WS: [id number] LDCT LUNG CANCER SCREENING TECHNIQUE: Noncontrast CT of the chest with coronal and sagittal reformatted images. CLINICAL INFORMATION: lung cancer screening COMPARISON: CT October 31, 2020 DLP: 83.21 mGy.cm DIvol: Mean CTDIvol: 1.60 (mGy) All CT scans at [facility] use at least one of these dose optimization techniques: automat ed exposure control; mA and/or kV adjustment per patient size (includes targeted exams where dose is matched to clinical indication); or iterative reconstruction. FINDINGS: Mild chronic emphysematous changes. A few tiny subcentimeter noncalcified nodules in the up per lobes. Calcified granulomas RIGHT lower lobe. No suspicious pulmonary parenchymal opacities. Normal caliber thoracic aorta. Aortic calcification. Normal caliber descending thoracic aorta. No med iastinal or hilar lymphadenopathy. No axillary lymphadenopathy. Tiny esophageal hiatal hernia. Spleni c granulomas. Adrenal glands are normal. Mild thoracic curve. CT/CT lung screening [id number] IMPRESSION: LUNG-RADS: 2-Benign Appearance or Behavior FOLLOW UP: 12 Month: Continue annual screening with LDCT
== END 2022-03-06 13:17 | disposition home or self-care (01) ==
LOC: RAD 13:25
PROVIDERS: PCP Clinical Nurse Specialist Adult Health; Visit Provider Clinical Nurse Specialist Adult Health
DX: Z12.2 Encounter for screening for malignant neoplasm of respiratory organs (principal); Z72.0 Tobacco use; Z87.891 Personal history of nicotine dependence
CPT/HCPCS: 71271

== ENCOUNTER → 2022-03-25 14:45 | Outpatient (BNVA) | payer MEDICARE, BC, SELFPAY | PROVIDERS: PCP Clinical Nurse Specialist Adult Health; Visit Provider Internal Medicine Cardiovascular Disease | DX: R07.9 Chest pain, unspecified (principal); R00.1 Bradycardia, unspecified; R06.02 Shortness of breath; I10 Essential (primary) hypertension; I25.10 Atherosclerotic heart disease of native coronary artery without angina pectoris; G47.33 Obstructive sleep apnea (adult) (pediatric); Z86.73 Personal history of transient ischemic attack (TIA), and cerebral infarction without residual deficits; F17.210 Nicotine dependence, cigarettes, uncomplicated | CPT/HCPCS: 99214; Q3014 ==

== ENCOUNTER → 2022-04-20 15:59 | Outpatient (BNVA) | payer MEDICARE, BC, SELFPAY | PROVIDERS: PCP Clinical Nurse Specialist Adult Health; Visit Provider Urology | DX: N20.9 Urinary calculus, unspecified (principal) | CPT/HCPCS: 74018; 81003; 99213 ==

== ENCOUNTER 2022-09-08 10:35 | Outpatient (CLI) | payer MEDICARE, BC, SELFPAY ==
--- NOTE | 2022-09-08 10:50 | XR_ITS ---
WS: [id number] EXAMINATION: XR chest 2V* [id number] REASON FOR EXAM: back pain, right shoulder blade COMPARISON: None available. ORDER DATE: 09/08/2022 11:13 AM FINDINGS: The lungs are clear of infiltrate. The cardiac and mediastinal outlines are unremarkable with athe rosclerotic aortic change. There are no significant pleural effusions . No significant abnormalities are noted in the spine or remainder of the bony thorax. XR/XR chest 2V* [id number] IMPRESSION: NO ACUTE PULMONARY CHANGE.
== END 2022-09-08 10:36 | disposition home or self-care (01) ==
PROVIDERS: PCP Clinical Nurse Specialist Adult Health; Visit Provider Clinical Nurse Specialist Adult Health
DX: M25.511 Pain in right shoulder (principal); M54.9 Dorsalgia, unspecified
CPT/HCPCS: 71046; 80053; 85025

== ENCOUNTER → 2022-09-23 14:14 | Outpatient (BNVA) | payer MEDICARE, BC, SELFPAY | PROVIDERS: PCP Clinical Nurse Specialist Adult Health; Visit Provider Internal Medicine Cardiovascular Disease | DX: R07.9 Chest pain, unspecified (principal); R00.1 Bradycardia, unspecified; R06.02 Shortness of breath; I10 Essential (primary) hypertension; I25.10 Atherosclerotic heart disease of native coronary artery without angina pectoris; G47.33 Obstructive sleep apnea (adult) (pediatric); Z72.0 Tobacco use; Z86.73 Personal history of transient ischemic attack (TIA), and cerebral infarction without residual deficits | CPT/HCPCS: 99214 ==

== ENCOUNTER 2022-11-08 16:02 | Emergency (ER) | payer MEDICARE, BC, SELFPAY ==
[2022-11-08 16:10] VITALS: BP 125/65; PULSE 85; RESP 18; TEMP 36.8; O2SAT 95; BMI 25.7
[2022-11-08 16:18] VITALS: O2SAT 94
--- NOTE | 2022-11-08 16:19 | ECG_ITS ---
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 Measurements Intervals [place] Rate: 76 P: 67 IN: 194 QRS: -32 QRSD: 94 T: 33 QT: 404 QTc: 456 Interpretive Statements SINUS RHYTHM LEFT AXIS DEVIATION [QRS AXIS < -30] LOW QRS VOLTAGE IN PRECORDIAL LEADS [QRS DEFLECTION < 1.0 mV IN CHEST LEADS] POSSIBLE ANTERIOR MYOCARDIAL INFARCTION , OF INDETERMINATE AGE [30 ms Q WAVE IN V3/V4, OR R < 0.2 mV IN V4] Compared to ECG 03/07/2021 03:50:55 Left-axis deviation now present Myocardial infarct finding still present Electronically Signed On 11-09-2022 16:17:20 CDT by Grant Barreto M.D. [id number]
--- NOTE | 2022-11-08 16:21 | W.ED.SEIZURE ---
HPI - Seizure General: Chief Complaint: Seizure Stated Complaint: SEIZURE Time Seen by Provider: 11/08/22 16:13 History of Present Illness: HPI Narrative: Patient presents to the ER by EMS with complaints of a seizure at home. Patient is on Zonegran for seizures she takes this twice a day and has not missed any doses. Her last seizure was years ago. Patient does admit to drinking alcohol heavily yesterday and then falling in the bathtub last night. Patient denies any head pain at this time patient does say from the fall her right ankle and left wrist is mildly tender. Patient does not necessarily remember what happened around the time of the seizure. Patient is denying any chest pain shortness of breath or head pain at this moment. Review of Systems General: Reports: 10 or more systems reviewed and unremarkable except in HPI and below PFSH ED PFSH: Medical History COPD (chronic obstructive pulmonary disease) CVA (cerebral vascular accident) Essential hypertension Hydronephrosis, right IBS (irritable bowel syndrome) Major depression Obstructive sleep apnea Renal stones Seizures Tobacco abuse Urolithiasis Bilateral nonobstructing renal calculi. Symptomatic right ureteral obstructing stone treated endoscopically with laser lithotripsy 2020. Stone risk reduction strategies employed. Surgical History S/P cataract surgery S/P hip replacement Right and Left S/P knee replacement Left Family History Father , AGE 76 No problems noted. Mother , Age 42 No problems noted. Other COPD (chronic obstructive pulmonary disease) Heart disease Hydronephrosis, right Myocardial infarction Stroke Social History Smoking and tobacco status: current every day smoker cigarettes Packs smoked per day: 2 Alcohol intake: current Alcohol intake frequency: holidays/special occasions only Substance/Drug Use: never Marital status: / Current occupational status: retired Physical Exam Const: COMMON NORMALS: no acute distress, average body habitus, patient oriented x3, no limitations, healthy appearing, alert and well nourished HENMT: COMMON NORMALS: normocephalic, atraumatic, hearing grossly normal bilaterally, external ears normal, Normal external nose present and moist oral mucous membranes HEAD & SCALP: normocephalic and atraumatic NOSE: Normal external nose present EXTERNAL EAR: Yes external ears normal Eye: COMMON NORMALS: Equal, round and reactive pupils present, EOMs intact bilaterally, conjunctivae normal and no scleral icterus CONJUNCTIVA: Yes conjunctivae normal PUPIL: Yes Equal, round and reactive pupils present Neck/C-Spine: COMMON NORMALS: full ROM, no lymphadenopathy, supple, no meningeal signs, no JVD and Thyroid normal THYROID: Thyroid normal Lymph: LYMPHATIC: no lymphadenopathy noted Chest: COMMONS NORMALS: normal inspection of the chest and normal palpation of entire chest wall Resp: COMMON NORMALS: normal respiratory effort, No retractions, No use of accessory muscles and clear to auscultation bilaterally AUSCULTATION: clear to auscultation bilaterally Cardio: COMMON NORMALS: no JVD, regular rate, regular rhythm, S1 normal heart sound present, S2 normal heart sound present, No gallops present (Cardio), No clicks present (Cardio), No murmurs present (Cardio) and No rub (Cardio) RATE: regular rate RHYTHM: regular rhythm HEART SOUNDS: S1 normal heart sound present and S2 normal heart sound present GI: COMMON NORMALS: Normal to inspection, nondistended, normoactive bowel sounds present, Soft to palpation, non-tender, No hepatosplenomegaly present and no masses PALPATION: Yes Soft to palpation and Yes No hepatosplenomegaly present : COMMON NORMALS: Yes no CVA tenderness BLADDER/KIDNEY EXAM: Yes no CVA tenderness Back/Pelvis: COMMON NORMALS: no CVA tenderness Neuro: COMMON NORMALS: patient oriented x3 SENSORIUM/ORIENTATION: Yes alert MENINGEAL SIGNS: Yes no meningeal signs Course Vital Signs: Vital signs: Vital Signs Temperature 98.3 F 11/08/22 16:10 Pulse Rate 73 11/08/22 18:57 Respiratory Rate 16 11/08/22 18:57 Blood Pressure 124/62 11/08/22 18:57 Pulse Oximetry 96 11/08/22 18:57 Oxygen Delivery Me thod Room Air 11/08/22 16:18 MDM - Seizure MDM Narrative Medical decision making narrative: Patient presents to the ER with complaints of seizure today. Patient has a history of seizures and is on seizure medicine. Patient had lab work which included cardiac enzymes and head CT chest x-ray all of which were benign. Patient had elevated prolactin which would go along with a seizure. Patient will be discharged home to follow-up with her PCP and/or neurologist. Differential Diagnosis Seizure Differential Diagnosis: Likely epileptic seizure; Unlikely intractable seizure disorder, febrile convulsion, focal seizure, generalized seizure, new onset seizure or status epilepticus Medical Records Attestation: I reviewed the patient's medical records. Lab Data Attestation: I reviewed the patient's lab results. 11/08/22 16:59 11/08/22 16:59 Labs: Radiology Impressions Head CT 11/08/22 16:24 IMPRESSION: No acute intracranial abnormality. Laboratory Results WBC 9.00 10^3/uL (3.29-11.43) 11/08/22 16:59 RBC 4.48 10^6/uL (3.85-5.65) 11/08/22 16:59 Hgb 13.90 g/dL (11.27-16.99) 11/08/22 16:59 Hct 41.2 % (36-47) 11/08/22 16:59 MCV 92.0 fl (85-98) 11/08/22 16:59 MCH 31.0 pg (27-33) 11/08/22 16:59 MCHC 33.7 g/dL (30-55) 11/08/22 16:59 RDW 13.3 % (12.1-15.1) 11/08/22 16:59 Plt Count 226 10^3/cmm (157-399) 11/08/22 16:59 MPV 8.6 fL (7.4-10.4) 11/08/22 16:59 Neut % (Auto) 74.5 % 11/08/22 16:59 Lymph % (Auto) 15.4 % 11/08/22 16:59 [place] % (Auto) 7.7 % 11/08/22 16:59 Eos % (Auto) 1.8 % 11/08/22 16:59 Baso % (Auto) 0.4 % 11/08/22 16:59 Neut # (Auto) 6.70 10^3/uL (1.8-7.7) 11/08/22 16:59 Lymph # (Auto) 1.4 10^3/uL (0.8-4.8) 11/08/22 16:59 [place] # (Auto) 0.7 10^3/uL (0.2-0.9) 11/08/22 16:59 Eos # (Auto) 0.2 10^3/uL (0.0-0.8) 11/08/22 16:59 Baso # (Auto) 0.0 10^3/uL (0.0-0.1) 11/08/22 16:59 Nucleated RBC % (auto) 0 % 11/08/22 16:59 Nucleated RBCs # 0.0 /100WBC 11/08/22 16:59 Sodium 138 mmol/L (136-145) 11/08/22 16:59 Potassium 3.7 mmol/L (3.5-5.1) 11/08/22 16:59 Chloride 104 mmol/L (98-107) 11/08/22 16:59 Carbon Dioxide 24 mmol/L (22-29) 11/08/22 16:59 Anion Gap 13.7 (5-19) 11/08/22 16:59 BUN 14 mg/dL (8-23) 11/08/22 16:59 Creatinine 0.9 mg/dL (0.5-0.9) 11/08/22 16:59 GFR Calculation Not Reportable 11/08/22 16:59 Glucose 97 mg/dL (65-115) 11/08/22 16:59 Calculated Osmolality 286 mOsm/kg (285-295) 11/08/22 16:59 Calcium 8.9 mg/dL (8.5-10.5) 11/08/22 16:59 Magnesium 2.1 mg/dL (1.7-2.3) 11/08/22 16:59 Total Bilirubin 0.2 mg/dL (0.15-1.2) 11/08/22 16:59 AST 16 U/L (0-32) 11/08/22 16:59 ALT 7 U/L (0-33) 11/08/22 16:59 Alkaline Phosphatase 114 U/L (35-105) H 11/08/22 16:59 Troponin T Baseline 10 ng/L (0-10) 11/08/22 16:59 Troponin T 120 Minute 14.96 ng/L (0-10) H 11/08/22 19:00 Delta Troponin T 4.96 ABS# (0-10) 11/08/22 19:00 Total Protein 6.8 g/dL (6.6-8.7) 11/08/22 16:59 Albumin 4.0 g/dL (3.5-5.2) 11/08/22 16:59 Globulin 2.8 g/dL (1.3-4.6) 11/08/22 16:59 Prolactin 54.27 ng/mL (4.8-23.3) H 11/08/22 16:59 Urine Color Light yellow (Yellow) 11/08/22 19:17 Urine Appearance Clear (CLEAR) 11/08/22 19:17 Urine pH 7 (5-7) 11/08/22 19:17 Ur Specific [place] 1.005 (1.005-1.030) 11/08/22 19:17 Urine Protein Neg (Negative) 11/08/22 19:17 Urine Glucose (UA) Norm (Normal) 11/08/22 19:17 Urine Ketones Negative (Negative) 11/08/22 19:17 Urine Blood Neg (Negative) 11/08/22 19:17 Urine Nitrate Negative (Negative) 11/08/22 19:17 Urine Bilirubin Neg (Negative) 11/08/22 19:17 Urine Urobilinogen Neg mg/dL (Negative) 11/08/22 19:17 Ur Leukocyte Esterase Negative (Negative) 11/08/22 19:17 Urine Opiates Screen Negative ng/mL (Negative) 11/08/22 19:17 Ur Barbiturates Screen Negative ng/mL (Negative) 11/08/22 19:17 Ur Phencyclidine Scrn Negative ng/mL (Negative) 11/08/22 19:17 Ur Amphetamines Screen Negative ng/mL (Negative) 11/08/22 19:17 U Benzodiazepines Scrn Negative ng/mL (Negative) 11/08/22 19:17 Urine Cocaine Screen Negative ng/mL (Negative) 11/08/22 19:17 U Marijuana (THC) Screen Negative ng/mL (Negative) 11/08/22 19:17 Ethyl Alcohol < 10 mg/dL (0-10) 11/08/22 16:59 All radiology interpretation(s) finalized by discharge EKG Data EKG 1: Attestation: I personally reviewed and interpreted this EKG as follows: EKG interpretation date: 11/08/22 EKG interpretation time: 16:26 Prior EKG tracings: not available for review Interpretation: EKG showed ventricular rate 76 bpm, KS interval 194, QRS duration 94, QTc of 434, sinus rhythm, left axis deviation Discharge Plan Discharge Patient Disposition: Home Clinical Impression: Epileptic seizure Qualifiers: Epilepsy type: unspecified Intractability: not intractable Status epilepticus: without status epilepticus Qualified Code(s): G40.909 - Epilepsy, unspecified, not intractable, without status epilepticus Condition: Stable Prescriptions: No Action zonisamide 100 mg capsule 100 mg PO BID clopidogrel 75 mg tablet 75 mg PO DAILY Qty: 90 3RF escitalopram oxalate 10 mg tablet 10 mg PO DAILY Qty: 90 3RF isosorbide mononitrate 30 mg tablet extended release 24 hr 30 mg PO DAILY Qty: 90 3RF pantoprazole [Protonix] 40 mg tablet,delayed release (DR/EC) 40 mg PO DAILY Qty: 90 3RF rosuvastatin 20 mg tablet 20 mg PO BEDTIME Qty: 90 3RF amlodipine 10 mg tablet 10 mg PO DAILY Qty: 90 3RF cyclobenzaprine 5 mg tablet 5 mg PO TID PRN (Reason: muscle spasm) Qty: 30 0RF acetaminophen [Tylenol Extra Strength] 500 mg Tablet 500 mg PO PRN nitroglycerin [Nitrostat] 0.4 mg Tablet, Sublingual 0.4 mg SUBLINGUAL Q5M PRN (Reason: Chest Pain) Discharge Orders: Discharge ED (Routine); Ordered 11/08/22 Ordered By: Bradley Johnston Referrals: Dayday Ordonez, [facility] [Primary Care Provider] - 1 week Patient Instructions: Seizures Activity Restrictions/Additional Instructions: Please continue take all your medicine as directed. Please follow-up with your family practice physician and/or neurologist within the next 7 to 10 days for further evaluation and treatment. Coding Level of Care Code ED Lead Software Tester for Matthew Velásquez
--- NOTE | 2022-11-08 16:24 | CTR_ITS ---
PROCEDURE INFORMATION: Exam: CT Head Without Contrast Exam date and time: 11/08/2022 4:42 PM Age: 77 years old Clinical indication: Injury or trauma; Fall; Concussion/head injury; Consciousness not specified; Additional info: Seizure, fall TECHNIQUE: Imaging protocol: Computed tomography of the head without contrast. Radiation optimization: All CT scans at this facility use at least one of these dose optimization techniques: automated exposure control; mA and/or kV adjustment per patient size (includes targeted exams where dose is matched to clinical indication); or iterative reconstruction. REPORTING DATA: Count of CT and Cardiac NM exams in prior 12 months: This patient has received 2 known CTs and 0 known cardiac nuclear medicine studies in the 12 months prior to the current study. COMPARISON: CT head wo con* [id number] 03/07/2021 4:06 AM RADIATION DOSE METRICS: Total DLP (mGy-cm): 1057.88 FINDINGS: Brain: Nonacute lacunar infarct left basal ganglia. Mild bilateral periventricular and subcortical white matter hypodensities are present compatible with small-vessel ischemic disease. No midline shift. No mass, acute infarct, hemorrhage, or extra-axial fluid collection. Mild parenchymal volume loss. Cerebral ventricles: No ventriculomegaly. Paranasal sinuses: Visualized sinuses are unremarkable. No fluid levels. Mastoid air cells: Visualized mastoid air cells are well aerated. Bones/joints: Unremarkable. No acute fracture. Soft tissues: Unremarkable. CT/CT head wo con* [id number] IMPRESSION: No acute intracranial abnormality.
[2022-11-08] MEDS: LORazepam 2 mg/mL INJ 1 mL 1 MG IVP (17:04)
[2022-11-08 17:26] LABS: Basophils % 0.4 %; Eosinophils # 0.2 10^3/uL (0.0-0.8); Eosinophils % 1.8 %; Hematocrit 41.2 % (36-47); Lymphocytes # 1.4 10^3/uL (0.8-4.8); Lymphocytes % 15.4 %; Mean Corpuscular HGB Conc 33.7 g/dL (30-55); Mean Platelet Volume 8.6 fL (7.4-10.4); Monocytes # 0.7 10^3/uL (0.2-0.9); Monocytes % 7.7 %; Neutrophils % 74.5 %; Nucleated Red Blood Cells % 0 %; Platelet Count 226 10^3/cmm (157-399); Red Blood Count 4.48 10^6/uL (3.85-5.65); Red Cell Distribution Width 13.3 % (12.1-15.1)
[2022-11-08 17:54] LABS: Troponin(5th) Baseline 10 ng/L (0-10)
[2022-11-08 18:03] LABS: Alanine Aminotransferase 7 U/L (0-33); Alkaline Phosphatase 114 U/L (35-105); Anion Gap 13.7 (5-19); Aspartate Amino Transferase 16 U/L (0-32); Blood Urea Nitrogen 14 mg/dL (8-23); Calcium 8.9 mg/dL (8.5-10.5); Carbon Dioxide 24 mmol/L (22-29); Chloride 104 mmol/L (98-107); Globulin 2.8 g/dL (1.3-4.6); Glucose 97 mg/dL (65-115); Magnesium 2.1 mg/dL (1.7-2.3); Osmolality Calculated 286 mOsm/kg (285-295); Potassium 3.7 mmol/L (3.5-5.1); Prolactin 54.27 ng/mL (4.8-23.3); Sodium 138 mmol/L (136-145); Total Bilirubin 0.2 mg/dL (0.15-1.2); Total Protein 6.8 g/dL (6.6-8.7)
[2022-11-08 18:06] LABS: Alcohol Level < 10 mg/dL (0-10)
[2022-11-08 18:57] VITALS: BP 124/62; PULSE 73; RESP 16; O2SAT 96
[2022-11-08 19:23] LABS: Add Urine Microscopic? NO; Charge for UA Resulting for Rev
[2022-11-08 19:24] LABS: Urine Appearance Clear (CLEAR); Urine Color Light yellow (Yellow)
[2022-11-08 19:25] LABS: Bilirubin Urine Neg (Negative); Blood Urine Neg (Negative); Glucose Urine UA Norm (Normal); Ketones Urine Negative (Negative); Leukocyte Esterase Urine Negative (Negative); Nitrate Urine Negative (Negative); Protein Urine Neg (Negative); Specific Gravity, Urine 1.005 (1.005-1.030); Urobilinogen Urine Neg (Negative); pH Urine 7 (5-7)
[2022-11-08 19:34] LABS: Amphetamines Screen Urine Negative (Negative); Barbiturates Screen Urine Negative (Negative); Benzodiazepines Screen Urine Negative (Negative); Cocaine Screen Urine Negative (Negative); Opiate Screen Urine Negative (Negative); PCP Screen Urine Negative (Negative); THC Screen Urine Negative (Negative)
[2022-11-08 19:34] LABS: Troponin 5 2HR 14.96 ng/L (0-10)
[2022-11-08 19:36] LABS: Troponin 5 2HR Delta 4.96 ABS# (0-10)
[2022-11-08 20:10] VITALS: BP 124/62; PULSE 73; RESP 16; TEMP 36.8; O2SAT 96
== END 2022-11-08 20:11 | disposition home or self-care (01) ==
PROVIDERS: Emergency Provider Emergency Medicine; PCP Clinical Nurse Specialist Adult Health
DX: G40.909 Epilepsy, unspecified, not intractable, without status epilepticus (principal); Z79.02 Long term (current) use of antithrombotics/antiplatelets; F17.210 Nicotine dependence, cigarettes, uncomplicated; J44.9 Chronic obstructive pulmonary disease, unspecified; Z86.73 Personal history of transient ischemic attack (TIA), and cerebral infarction without residual deficits; I10 Essential (primary) hypertension
CPT/HCPCS: 36415; 70450; 80053; 80306; 80307; 81003; 83735; 84146; 84484; 85025; 93005; 96374; 99285; J2060

== ENCOUNTER → 2023-03-15 09:58 | Outpatient (BNVA) | payer MEDICARE, BC, SELFPAY | PROVIDERS: PCP Clinical Nurse Specialist Adult Health; Referring Provider Clinical Nurse Specialist Adult Health; Visit Provider Psychiatry & Neurology Neurology | DX: G40.919 Epilepsy, unspecified, intractable, without status epilepticus (principal); R55 Syncope and collapse; Z86.73 Personal history of transient ischemic attack (TIA), and cerebral infarction without residual deficits | CPT/HCPCS: 99203 ==

== ENCOUNTER → 2023-03-25 09:00 | Outpatient (BNVA) | payer MEDICARE, BC, OTHER, SELFPAY | PROVIDERS: PCP Clinical Nurse Specialist Adult Health; Visit Provider Nurse Practitioner Family | DX: I10 Essential (primary) hypertension (principal); F17.210 Nicotine dependence, cigarettes, uncomplicated | CPT/HCPCS: 99213 ==

== ENCOUNTER 2023-03-25 09:41 | Outpatient (CLI) | payer MEDICARE, BC, SELFPAY ==
[2023-04-01 07:25] LABS: Zonisamide (Zonegran) 15.8 mcg/mL (10.0-40.0)
== END 2023-03-25 09:42 | disposition home or self-care (01) ==
LOC: LAB 09:46
PROVIDERS: PCP Clinical Nurse Specialist Adult Health; Visit Provider Psychiatry & Neurology Neurology
DX: R56.9 Unspecified convulsions (principal)
CPT/HCPCS: 36415; 80203

== ENCOUNTER 2023-04-08 10:52 | Outpatient (CLI) | payer MEDICARE, BC, SELFPAY ==
--- NOTE | 2023-04-08 11:00 | MR_ITS ---
WS: [id number] MRA ANGIOGRAPHY [facility] [place] [facility] [place] HISTORY: R56.9 - Unspecified convulsions COMPARISON: 03/18/2016 TECHNIQUE: 3-D MR angiography is performed of the [place] [facility] [place]. All images are reviewed including source images. Distal vertebral and basilar arteries are intact with no significant stenosis or plaque. Dominant dis bianca RIGHT vertebral artery. Posterior cerebral arteries are normal course and caliber. Posterior comm unicating arteries are both patent. Intracranial portion of the internal carotid arteries are normal course and caliber. Mild atheroscler osis in the distal intracranial carotid arteries. There is no stenosis. No aneurysm identified. Middl e cerebral and anterior cerebral arteries are both patent. Anterior communicating artery is normal. IMPRESSION: 1. Mild atherosclerotic plaque in the distal intracranial carotid arteries through the cavernous sin uses. Mildly progressed since 03/18/2016. No significant stenosis or occlusion. 2. No aneurysms are identified and no occlusions.
--- NOTE | 2023-04-08 11:00 | MR_ITS ---
WS: [id number] MRA CAROTID ARTERIES HISTORY: R56.9 - Unspecified convulsions COMPARISON: None available. TECHNIQUE: 2D imaging noncontrast. MRA is performed with with and without intravenous gadolinium. MIP and source images are reviewed. MultiHance 15 mL IV. Right: Normal RIGHT cervical carotid artery. There is a small amount of plaque at the bifurcation but there is no high-grade stenosis. Stenosis would be less than 50%. External carotid artery is patent. Left: There is a very slight narrowing involving the origin of the LEFT common carotid artery from th e arch. Less than 50% stenosis. There is flow noted in the carotid artery in the 2D imaging. No signi ficant stenosis. Tortuous ICA. External carotid arteries patent. Subclavian Arteries: Subclavian arteries are both patent. No stenosis. Vertebral Arteries: Bilateral vertebral arteries are patent with no significant stenosis or flow-limi ting stenosis. Vertebral arteries are tortuous. IMPRESSION: 1. No significant carotid artery stenosis. Atherosclerotic plaque at the bifurcations but less than 50% stenosis. 2. Mild narrowing involving the origin of the LEFT common carotid artery, stenosis estimated less th an 50%. 3. Normal vertebral arteries.
--- NOTE | 2023-04-08 11:00 | MR_ITS ---
WS: [id number] MRI BRAIN WITH AND WITHOUT CONTRAST HISTORY: SEIZURES, SYNCOPE, left ear pain. COMPARISON: 11/29/2017 TECHNIQUE: Multiplanar imaging performed through the brain with MultiHance 15 ml's IV. No acute infarcts are seen. Erickson-white matter differentiation is well preserved. Mild small vessel is chemic disease. Small lacunar infarcts are noted in the RIGHT harmon radiata and LEFT basal ganglia. There is very mild volume loss and atrophy which is similar to the prior study. No new infarcts. No hemorrhage. Ventricles are asymmetric with the LEFT being larger than the RIGHT but stable. This is probably norm al variation. Clivus and pituitary gland are normal. Visualized posterior fossa and brainstem are also normal. Postcontrast images are negative for masses or vascular malformations. Dural venous sinuses are normal. Paranasal sinuses: Well aerated with no significant disease. Mastoid air cells: Normal. Calvarium and scalp: Normal. IMPRESSION: 1. No acute infarct or hemorrhage. 2. Mild atrophy with no significant progression of small vessel ischemic disease or infarct since 20 18. 3. No mass or mass effect. 4. No mastoid air cell effusion on the LEFT. The LEFT eustachian tube is unremarkable by MRI.
[2023-04-08] MEDS: gadobenate dimeglumine 20 mL vial IV (12:45)
== END 2023-04-08 10:53 | disposition home or self-care (01) ==
LOC: RAD 10:53
PROVIDERS: PCP Clinical Nurse Specialist Adult Health; Visit Provider Psychiatry & Neurology Neurology
DX: R56.9 Unspecified convulsions (principal)
CPT/HCPCS: 70544; 70548; 70553; A9577

== ENCOUNTER → 2023-04-23 11:48 | Outpatient (BNVA) | payer MEDICARE, BC, SELFPAY | PROVIDERS: PCP Clinical Nurse Specialist Adult Health; Visit Provider Psychiatry & Neurology Neurology | DX: G40.919 Epilepsy, unspecified, intractable, without status epilepticus (principal); R55 Syncope and collapse; R56.9 Unspecified convulsions | CPT/HCPCS: 95816 ==

== ENCOUNTER → 2023-05-26 11:44 | Outpatient (BNVA) | payer MEDICARE, BC, SELFPAY | PROVIDERS: PCP Clinical Nurse Specialist Adult Health; Visit Provider Clinical Nurse Specialist Adult Health | DX: I10 Essential (primary) hypertension (principal); R29.898 Other symptoms and signs involving the musculoskeletal system; R60.0 Localized edema; Z72.0 Tobacco use | CPT/HCPCS: 80053; 80061; 85025 ==

== ENCOUNTER 2023-05-28 13:24 | Outpatient (CLI) | payer MEDICARE, BC, SELFPAY ==
--- NOTE | 2023-05-28 13:47 | XR_ITS ---
WS: [id number] Left knee, 3 views, 05/28/2023 Clinical Data: left knee instability/leg weakness Comparison: Left knee, 10/05/2012 Findings: The left knee arthroplasty components show no change. No loosening or periprosthetic fractures are se en. The soft tissues are normal. Impression: Stable left knee arthroplasty.
== END 2023-05-28 13:25 | disposition home or self-care (01) ==
PROVIDERS: PCP Clinical Nurse Specialist Adult Health; Visit Provider Clinical Nurse Specialist Adult Health
DX: R29.898 Other symptoms and signs involving the musculoskeletal system (principal)
CPT/HCPCS: 73562

== ENCOUNTER 2023-06-16 09:45 | Outpatient (RCR) | payer MEDICARE, BC, SELFPAY | END 2023-07-16 23:59 | disposition home or self-care (01) | LOC: SPT 09:45 | PROVIDERS: PCP Clinical Nurse Specialist Adult Health; Visit Provider Clinical Nurse Specialist Adult Health | DX: R29.898 Other symptoms and signs involving the musculoskeletal system (principal); R53.1 Weakness | CPT/HCPCS: 97110; 97161 ==

== ENCOUNTER → 2023-09-02 14:18 | Outpatient (BNVA) | payer MEDICARE, BC, SELFPAY | PROVIDERS: PCP Clinical Nurse Specialist Adult Health; Visit Provider Internal Medicine | DX: R07.89 Other chest pain (principal); R00.1 Bradycardia, unspecified; R06.02 Shortness of breath; I10 Essential (primary) hypertension; I25.10 Atherosclerotic heart disease of native coronary artery without angina pectoris; G47.33 Obstructive sleep apnea (adult) (pediatric); Z72.0 Tobacco use; Z86.73 Personal history of transient ischemic attack (TIA), and cerebral infarction without residual deficits | CPT/HCPCS: 99214 ==

== ENCOUNTER → 2023-10-12 12:55 | Outpatient (BNVA) | payer MEDICARE, BC, SELFPAY | PROVIDERS: PCP Clinical Nurse Specialist Adult Health; Visit Provider Psychiatry & Neurology Neurology | DX: I63.9 Cerebral infarction, unspecified; G40.919 Epilepsy, unspecified, intractable, without status epilepticus; R55 Syncope and collapse | CPT/HCPCS: 99212; 99213 ==

== ENCOUNTER 2023-12-04 01:49 | Emergency (ER) | payer MEDICARE, BC, SELFPAY ==
[2023-12-04 01:51] VITALS: BP 152/64; PULSE 71; RESP 20; TEMP 36.6; O2SAT 96; BMI 28.3
--- NOTE | 2023-12-04 02:13 | CTR_ITS ---
PROCEDURE INFORMATION: Exam: CT Head Without Contrast Exam date and time: 12/04/2023 2:34 AM Age: 78 years old Clinical indication: Altered mental status/memory loss; Confusion or disorientation; Patient HX: EMS arrival for AMS. Patient awoke from sleep with disorientation. History of CVA. TECHNIQUE: Imaging protocol: Computed tomography of the head without contrast. Radiation optimization: All CT scans at this facility use at least one of these dose optimization techniques: automated exposure control; mA and/or kV adjustment per patient size (includes targeted exams where dose is matched to clinical indication); or iterative reconstruction. COMPARISON: MR head wo/w con [id number] 04/08/2023 12:19 PM RADIATION DOSE METRICS: Total DLP (mGy-cm): 1023.65 FINDINGS: Brain: There is patchy hypoattenuation in the deep and subcortical white matter, likely representing chronic small vessel ischemic change. Age-related parenchymal atrophy with enlargement of the CSF spaces. Left basal ganglia chronic lacunar infarct. No hemorrhage. Cerebral ventricles: Asymmetric enlargement of the left lateral ventricle comparison to the right, unchanged since prior exams. Paranasal sinuses: Visualized sinuses are unremarkable. No fluid levels. Mastoid air cells: Visualized mastoid air cells are well aerated. Orbital cavities: Bilateral cataract surgeries. Bones: Unremarkable. No acute fracture. Soft tissues: Unremarkable. CT/CT head wo con* [id number] IMPRESSION: No acute intracranial abnormality.
[2023-12-04 02:42] LABS: Basophils % 0.2 %; Eosinophils # 0.2 10^3/uL (0.0-0.8); Eosinophils % 2.1 %; Hematocrit 41.7 % (36-47); Lymphocytes # 1.7 10^3/uL (0.8-4.8); Lymphocytes % 19.4 %; Mean Corpuscular HGB Conc 33.1 g/dL (30-55); Mean Corpuscular Hemoglobin 30.7 pg (27-33); Mean Corpuscular Volume 92.9 fl (85-98); Mean Platelet Volume 8.6 fL (7.4-10.4); Monocytes # 0.8 10^3/uL (0.2-0.9); Monocytes % 8.7 %; Neutrophils # 6.13 10^3/uL (1.8-7.7); Neutrophils % 69.3 %; Nucleated Red Blood Cells % 0 %; Platelet Count 236 10^3/cmm (157-399); Red Blood Count 4.49 10^6/uL (3.85-5.65); Red Cell Distribution Width 14.2 % (12.1-15.1); White Blood Count 8.86 10^3/uL (3.29-11.43)
[2023-12-04 02:51] LABS: Alanine Aminotransferase 9 U/L (0-33); Albumin Level 4.3 g/dL (3.5-5.2); Alkaline Phosphatase 106 U/L (35-105); Anion Gap 13.7 (5-19); Aspartate Amino Transferase 16 U/L (0-32); Blood Urea Nitrogen 10 mg/dL (8-23); Carbon Dioxide 23 mmol/L (22-29); Chloride 106 mmol/L (98-107); Creatinine Clr Calc Pharmacy 49.9717; Globulin 2.7 g/dL (1.3-4.6); Glucose 136 mg/dL (65-115); Osmolality Calculated 289 mOsm/kg (285-295); Potassium 3.7 mmol/L (3.5-5.1); Sodium 139 mmol/L (136-145); Total Bilirubin 0.3 mg/dL (0.15-1.2)
[2023-12-04] MEDS: sodium chloride 0.9% 1,000 ML 999 ML IV (02:59)
[2023-12-04 03:05] LABS: Bilirubin Urine Negative (Negative); Blood Urine Non-haemolysed trace (Negative); Glucose Urine UA Negative (Normal); Ketones Urine Negative (Negative); Leukocyte Esterase Urine 1+ (Negative); Nitrate Urine Negative (Negative); Protein Urine Negative (Negative); Urine Appearance Cloudy (CLEAR); Urine Color Yellow (Yellow)
[2023-12-04 03:10] LABS: Add Urine Microscopic? YES; Bacteria Urine 2+ /hpf; Hyaline Casts Urine 4.95 /lpf; RBC Urine 0-2 /hpf (0-2); Squamous Epithelial Cell Urine 21-50 /hpf (0-5); WBC Urine 51-100 /hpf (0-5)
[2023-12-04 03:12] LABS: Add Urine Culture? Yes
[2023-12-04 03:27] VITALS: BP 152/64; PULSE 80; RESP 16; O2SAT 96
[2023-12-04] MEDS: ciprofloxacin 500 mg Tablet PO (04:40)
[2023-12-04 04:46] VITALS: BP 116/83; PULSE 69; RESP 15; O2SAT 97
--- NOTE | 2023-12-04 18:26 | ED_ITS ---
HPI - Neuro Symptoms/Deficit 2 General: Chief Complaint: Neuro Symptoms/Deficit Stated Complaint: WEAKNESS Time Seen by Provider: 12/04/23 02:01 History of Present Illness: This patient is a 78-year-old white female who presents to the emergency department stating that she has been feeling restless for the past several days. She had a headache Wednesday morning and a stiff neck and some confusion. She felt like her left leg was somewhat weak on Wednesday. Patient states she has had similar spells in the past. She states she had a workup for this last February. She was diagnosed with TIAs. She has not had any chest pain or shortness of breath. No nausea or vomiting. Associated symptoms: Reports headache(s) Related Data Home Medications Medication Instructions Recorded Confirmed acetaminophen 500 mg tablet 500 mg PO PRN 08/24/19 10/12/23 (Tylenol Extra Strength) nitroglycerin 0.4 mg sublingual 0.4 mg sublingual Q5M PRN Chest 08/24/19 10/12/23 tablet (Nitrostat) Pain Previous Rx's Medication Instructions Recorded cyclobenzaprine 5 mg tablet 5 mg PO TID PRN muscle spasm #30 09/08/22 tabs isosorbide mononitrate 30 mg 30 mg PO DAILY #90 tabs 09/08/22 tablet,extended release 24 hr pantoprazole 40 mg tablet,delayed 40 mg PO DAILY #90 tabs 12/24/22 release (Protonix) amlodipine 10 mg tablet 10 mg PO DAILY #90 tabs 09/02/23 escitalopram oxalate 10 mg tablet 10 mg PO DAILY #90 tabs 09/02/23 rosuvastatin 20 mg tablet 20 mg PO BEDTIME #90 tabs 09/20/23 clopidogrel 75 mg tablet 75 mg PO DAILY #90 tabs 09/30/23 zonisamide 100 mg capsule 100 mg PO BID #180 caps 10/12/23 ciprofloxacin HCl 500 mg tablet 500 mg PO BID #20 tabs 12/04/23 (Cipro) Allergies Allergy/AdvReac Type Severity Reaction Status Date / Time No Known Allergies Allergy Verified 09/02/23 14:27 Review of Systems 2 General: Reports: 10 or more systems reviewed and unremarkable except in HPI and below Neuro: Reports: headache(s) and weakness in extremities (Left leg) PFSH ED 2 PFSH: Medical History (Reviewed 10/12/23 @ 09: by Majo Allen) Essential hypertension GERD (gastroesophageal reflux disease) Major depression Obstructive sleep apnea uses her CPAP Tobacco abuse COPD (chronic obstructive pulmonary disease) CVA (cerebral vascular accident) Has had more than 1 CVA Seizures last seizure activity was 11/08/2022 IBS (irritable bowel syndrome) Urolithiasis Bilateral nonobstructing renal calculi. Symptomatic right ureteral obstructing stone treated endoscopically with laser lithotripsy 2020. Stone risk reduction strategies employed. Hydronephrosis, right Renal stones Surgical History (Reviewed 10/12/23 @ : by Majo Allen) S/P knee replacement Left S/P hip replacement Right and Left S/P cataract surgery Family History (Reviewed 10/12/23 @ : by Majo Allen) Father , AGE 76 No problems noted. Mother , Age 42 No problems noted. Other COPD (chronic obstructive pulmonary disease) Heart disease Hydronephrosis, right Myocardial infarction Stroke Social History (Reviewed 10/12/23 @ : by Majo Allen) Smoking and tobacco/nicotine status: current every day tobacco/nicotine user cigarettes Packs smoked per day: 2 Alcohol intake: current Alcohol intake frequency: holidays/special occasions only Substance/Drug Use: never Marital status: / Current occupational status: retired NIH stroke score 2 NIHSS: Level Of Consciousness - 1a: 0 Level Of Consciousness Questions - 1b: Both Correct Level Of Consciousness Commands - 1c: Both Correct Best Gaze - 2: Normal Visual Ball - 3: No Visual Loss Facial Palsy - 4: N ormal Motor Arm Right - 5: No Drift Motor Arm Left - 5: No Drift Motor Leg Right - 6: No Drift Motor Leg Left - 6: No Drift Limb Ataxia - 7: A bsent Sensory - 8: Normal Best Language - 9: No Aphasia Dysarthia - 10: Normal Extinction And Inattention - 11: 0 Score: Total Score: 0 Physical Exam 2 Const: COMMON NORMALS: no acute distress, patient oriented x3 and no limitations GENERAL APPEARANCE: cooperative and comfortable HENMT: COMMON NORMALS: normocephalic, atraumatic, Normal nasal mucous membranes and turbinates present, moist oral mucous membranes and oropharynx normal HEAD & SCALP: normal to inspection, normocephalic and atraumatic F MARIAH & SINUS: normal facial exam NOSE: Normal nasal mucous membranes and turbinates present Eye: COMMON NORMALS: Equal, round and reactive pupils present, EOMs intact bilaterally and conjunctivae normal GENERAL EYE: appearance normal, both eyes and all related structures CONJUNCTIVA: Yes conjunctivae normal PUPIL: Yes Equal, round and reactive pupils present Neck/C-Spine: COMMON NORMALS: supple and no JVD Chest: COMMONS NORMALS: normal inspection of the chest Resp: COMMON NORMALS: normal respiratory effort and clear to auscultation bilaterally AUSCULTATION: clear to auscultation bilaterally Cardio: COMMON NORMALS: no JVD, regular rate, regular rhythm, No gallops present (Cardio), No murmurs present (Cardio) and No rub (Cardio) RATE: r egular rate RHYTHM: regular rhythm GI: COMMON NORMALS: Normal to inspection, nondistended, normoactive bowel sounds present, Soft to palpation and non-tender AUSCULTATION: Yes normoactive bowel sounds PALPATION: Yes Soft to palpation : COMMON NORMALS: Yes no CVA tenderness BLADDER/KIDNEY EXAM: Yes no CVA tenderness Back/Pelvis: COMMON NORMALS: no CVA tenderness and thoracic and lumbar spine normal to inspection Extremity: COMMON NORMALS: normal to inspection Neuro: COMMON NORMALS: patient oriented x3 and CN's II-XII intact bilaterally Psych: COMMON NORMALS: mental status grossly normal, Normal thought process present and cooperative THOUGHT PROCESS: Normal thought process present Skin: COMMON NORMALS: no rashes or lesions noted, turgor normal and no jaundice GENERAL SKIN EXAM: no rashes or lesions noted and turgor normal Course 2 Vital Signs: Vital signs: Vital Signs Temperature 97.9 F 12/04/23 01:51 Pulse Rate 69 12/04/23 04:46 Respiratory Rate 15 12/04/23 04:46 Blood Pressure 116/83 12/04/23 04:46 Pulse Oximetry 97 12/04/23 04:46 Oxygen Delivery Me thod Room Air 12/04/23 03:27 MDM - Neuro Symptoms/Deficit Medical Decision Making CBC and CMP were normal. Urine analysis was consistent with a urinary tract infection. Head CT was read by the radiologist as normal. Patient was placed on ciprofloxacin and given her first dose in the emergency department. Recommended she follow-up with her primary care physician next week for recheck. She was discharged in stable condition. Lab Data 12/04/23 02:26 12/04/23 02:[address] 12/04/23 02:13 IMPRESSION: No acute intracranial abnormality. Laboratory Results WBC 8.86 10^3/uL (3.29-11.43) 12/04/23 02:26 RBC 4.49 10^6/uL (3.85-5.65) 12/04/23 02:26 Hgb 13.80 g/dL (11.27-16.99) 12/04/23 02:26 Hct 41.7 % (36-47) 12/04/23 02:26 MCV 92.9 fl (85-98) 12/04/23 02:26 MCH 30.7 pg (27-33) 12/04/23 02: MCHC 33.1 g/dL (30-55) 12/04/23 02:26 RDW 14.2 % (12.1-15.1) 12/04/23 02:26 Plt Count 236 10^3/cmm (157-399) 12/04/23 02:26 MPV 8.6 fL (7.4-10.4) 12/04/23 02:26 Neut % (Auto) 69.3 % 12/04/23 02:26 Lymph % (Auto) 19.4 % 12/04/23 02:26 [place] % (Auto) 8.7 % 12/04/23 02:26 Eos % (Auto) 2.1 % 12/04/23 02:26 Baso % (Auto) 0.2 % 12/04/23 02:26 Neut # (Auto) 6.13 10^3/uL (1.8-7.7) 12/04/23 02:26 Lymph # (Auto) 1.7 10^3/uL (0.8-4.8) 12/04/23 02:26 [place] # (Auto) 0.8 10^3/uL (0.2-0.9) 12/04/23 02:26 Eos # (Auto) 0.2 10^3/uL (0.0-0.8) 12/04/23 02:26 Baso # (Auto) 0.0 10^3/uL (0.0-0.1) 12/04/23 02:26 Nucleated RBC % (auto) 0 % 12/04/23 02:26 Nucleated RBCs # 0.0 /100WBC 12/04/23 02:26 Sodium 139 mmol/L (136-145) 12/04/23 02:26 Potassium 3.7 mmol/L (3.5-5.1) 12/04/23 02:26 Chloride 106 mmol/L (98-107) 12/04/23 02:26 Carbon Dioxide 23 mmol/L (22-29) 12/04/23 02:26 Anion Gap 13.7 (5-19) 12/04/23 02:26 BUN 10 mg/dL (8-23) 12/04/23 02:26 Creatinine 0.9 mg/dL (0.5-0.9) 12/04/23 02:26 GFR Calculation Not Reportable 12/04/23 02:26 Glucose 136 mg/dL (65-115) H 12/04/23 02:26 Calculated Osmolality 289 mOsm/kg (285-295) 12/04/23 02:26 Calcium 9.0 mg/dL (8.5-10.5) 12/04/23 02:26 Total Bilirubin 0.3 mg/dL (0.15-1.2) 12/04/23 02:26 AST 16 U/L (0-32) 12/04/23 02:26 ALT 9 U/L (0-33) 12/04/23 02:26 Alkaline Phosphatase 106 U/L (35-105) H 12/04/23 02:26 Total Protein 7.0 g/dL (6.6-8.7) 12/04/23 02:26 Albumin 4.3 g/dL (3.5-5.2) 12/04/23 02:26 Globulin 2.7 g/dL (1.3-4.6) 12/04/23 02:26 Urine Color Yellow (Yellow) 12/04/23 02:40 Urine Appearance Cloudy (CLEAR) A 12/04/23 02:40 Urine pH 6.0 (5-7) 12/04/23 02:40 Ur Specific [place] 1.010 (1.005-1.030) 12/04/23 02:40 Urine Protein Negative (Negative) 12/04/23 02:40 Urine Glucose (UA) Negative (Normal) 12/04/23 02:40 Urine Ketones Negative (Negative) 12/04/23 02:40 Urine Blood Non-haemolysed trace (Negative) 12/04/23 02:40 Urine Nitrate Negative (Negative) 12/04/23 02:40 Urine Bilirubin Negative (Negative) 12/04/23 02:40 Urine Urobilinogen 1.0 mg/dL (Negative) 12/04/23 02:40 Ur Leukocyte Esterase 1+ (Negative) A 12/04/23 02:40 Urine RBC 0-2 /hpf (0-2) 12/04/23 02:40 Urine WBC 51-100 /hpf (0-5) H 12/04/23 02:40 Ur Squamous Epith Cells 21-50 /hpf (0-5) 12/04/23 02:40 Amorphous Sediment Not Reportable 12/04/23 02:40 Urine Bacteria 2+ /hpf (NONE) H 12/04/23 02:40 Hyaline Casts 4.95 /lpf 12/04/23 02:40 All radiology interpretation(s) finalized by discharge Discharge Plan Discharge Patient Disposition: Home Clinical Impression: Acute UTI Condition: Stable Prescriptions: New ciprofloxacin HCl [Cipro] 500 mg tablet 500 mg PO BID Qty: 20 0RF No Action isosorbide mononitrate 30 mg tablet extended release 24 hr 30 mg PO DAILY Qty: 90 3RF cyclobenzaprine 5 mg tablet 5 mg PO TID PRN (Reason: muscle spasm) Qty: 30 0RF pantoprazole [Protonix] 40 mg tablet,delayed release (DR/EC) 40 mg PO DAILY Qty: 90 3RF zonisamide 100 mg capsule 100 mg PO BID Qty: 180 3RF amlodipine 10 mg tablet 10 mg PO DAILY Qty: 90 3RF escitalopram oxalate 10 mg tablet 10 mg PO DAILY Qty: 90 3RF rosuvastatin 20 mg tablet 20 mg PO BEDTIME Qty: 90 3RF clopidogrel 75 mg tablet 75 mg PO DAILY Qty: 90 3RF acetaminophen [Tylenol Extra Strength] 500 mg Tablet 500 mg PO PRN nitroglycerin [Nitrostat] 0.4 mg Tablet, Sublingual 0.4 mg SUBLINGUAL Q5M PRN (Reason: Chest Pain) Discharge Orders: Discharge ED (Routine); Ordered 12/04/23 Ordered By: Low Hanna Patient Instructions: Urinary Tract Infection in Older Adults (ED) Coding Level of Care Code ED Case Therapist for Matthew Velásquez
== END 2023-12-04 04:50 | disposition home or self-care (01) ==
PROVIDERS: Emergency Provider Emergency Medicine
DX: N39.0 Urinary tract infection, site not specified (principal); Z79.02 Long term (current) use of antithrombotics/antiplatelets; F17.210 Nicotine dependence, cigarettes, uncomplicated; I10 Essential (primary) hypertension; J44.9 Chronic obstructive pulmonary disease, unspecified; Z86.73 Personal history of transient ischemic attack (TIA), and cerebral infarction without residual deficits
CPT/HCPCS: 36415; 70450; 80053; 81001; 85025; 87086; 96360; 99284; J7030

== ENCOUNTER 2024-01-26 06:28 | Outpatient (CLI) | payer MEDICARE, BC, SELFPAY ==
--- NOTE | 2024-01-26 06:45 | US_ITS ---
WS: [id number] Complete ABDOMINAL ULTRASOUND HISTORY: RUQ pain COMPARISON: Renal ultrasound 02/28/2020 Liver: 15.0 cm in length. Normal size liver and echogenicity. No bile duct dilatation or mass. Portal Vein: Normal hepatopetal flow with monophasic waveform. Gallbladder: Normally distended gallbladder. There are several nonshadowing foci within the gallbladd er likely representing small polyps. The largest measures 5 mm. No stones are identified or perichole cystic fluid. CBD: 0.7 cm Pancreas: Normal size and echogenicity. Right kidney: 9.9 cm x 4.6 x 4.7 cm. Cortex:0.9 cm. Normal size and echogenicity. No hydronephrosis or mass. Left kidney: 9.4 cm x 3.8 cm x 5.2 cm. Cortex: 1.1 cm. Normal size and echogenicity. No hydronephrosis or mass. Spleen: 8.4 cm. Normal size and echogenicity. Aorta and IVC: Unremarkable abdominal aorta and IVC. US/US abdomen complete* [id number] Impression: 1. Normal size gallbladder with no cholelithiasis. 2. Several small gallbladder polyps are identified with the largest measuring 5 mm. 3. No hydronephrosis.
== END 2024-01-26 06:29 | disposition home or self-care (01) ==
PROVIDERS: PCP Family Medicine; Visit Provider Family Medicine
DX: K82.4 Cholesterolosis of gallbladder (principal); R10.11 Right upper quadrant pain
CPT/HCPCS: 76700

== ENCOUNTER → 2024-04-10 13:17 | Outpatient (BNVA) | payer MEDICARE, BC, SELFPAY | PROVIDERS: PCP Family Medicine; Visit Provider Psychiatry & Neurology Neurology | DX: G40.919 Epilepsy, unspecified, intractable, without status epilepticus (principal); R55 Syncope and collapse; H53.8 Other visual disturbances; H92.02 Otalgia, left ear; I63.9 Cerebral infarction, unspecified | CPT/HCPCS: 99212 ==

== ENCOUNTER 2024-04-20 15:40 | Outpatient (CLI) | payer MEDICARE, BC, SELFPAY ==
--- NOTE | 2024-04-20 15:45 | USCV_ITS ---
Ella Russell Age: 78 Gender: F : 1945 Exam Date: 04/20/2024 15:53 Ordering Phys: Jj Raymundo MD Technologist: USR Exam Location: [facility] Indication: syncope Risk Factors: Previous Vascular Surgery: Right Brachial BP: / Left Brachial BP: / Right Left Velocity (cm/s) Spectral Plaque Velocity (cm/s) Spectral Plaque Syst/Diast Broadening Syst/Diast Broadening 72.40/ 10.70 Prox CCA 72.80 / 14.90 67.30/ 12.70 Mid CCA 59.80 / 13.60 55.10/ 11.10 Distal CCA 50.90 / 13.90 50.00/ 17.40 Prox ICA 43.90 / 12.70 108.50/26.50 Mid ICA 46.00 / 17.30 50.90/ 14.50 Distal ICA 50.00 / 16.90 82.30 ECA 88.90 0.90 ICA/CCA 0.90 Antegrade Vertebral Antegrade 46.00/ 12.40 cm/s 45.90/ 11.80 cm/s Tri Subclavian Tri 93.40 98.60 FINDINGS Comparison:. 11/29/17 No significant elevation of systolic or diastolic velocities. Waveforms are normal. Mild of calcified and noncalcified plaque in the bifurcations. Antegrade vertebral arteries. CONCLUSIONS No interval change in stenosis since prior exam. Bilateral ICA stenosis less than 50%. Mild carotid atherosclerosis. Dr. Lilliam Damon DO (Electronically Signed) Final Date: 21 April 2024 08:58 S
== END 2024-04-20 15:41 | disposition home or self-care (01) ==
PROVIDERS: PCP Family Medicine; Visit Provider Psychiatry & Neurology Neurology
DX: R55 Syncope and collapse (principal); I65.23 Occlusion and stenosis of bilateral carotid arteries
CPT/HCPCS: 93880

== ENCOUNTER 2024-05-17 20:00 | Outpatient (CLI) | payer MEDICARE, BC, SELFPAY | END 2024-05-17 20:01 | disposition home or self-care (01) | LOC: SLEEP 22:56 | PROVIDERS: PCP Family Medicine; Visit Provider Family Medicine | DX: G47.33 Obstructive sleep apnea (adult) (pediatric) (principal) | CPT/HCPCS: 95811 ==

== ENCOUNTER → 2024-06-01 12:26 | Outpatient (BNVA) | payer MEDICARE, BC, SELFPAY | PROVIDERS: PCP Family Medicine; Visit Provider Internal Medicine | DX: R07.89 Other chest pain (principal); R00.1 Bradycardia, unspecified; R06.02 Shortness of breath; I10 Essential (primary) hypertension; I25.10 Atherosclerotic heart disease of native coronary artery without angina pectoris; G47.33 Obstructive sleep apnea (adult) (pediatric); Z79.01 Long term (current) use of anticoagulants; Z72.0 Tobacco use; Z86.73 Personal history of transient ischemic attack (TIA), and cerebral infarction without residual deficits | CPT/HCPCS: 99214 ==

== ENCOUNTER → 2024-06-08 14:28 | Outpatient (BNVA) | payer MEDICARE, BC, SELFPAY | PROVIDERS: PCP Family Medicine; Referring Provider Psychiatry & Neurology Neurology; Visit Provider Psychiatry & Neurology Neurology | DX: R56.9 Unspecified convulsions (principal) | CPT/HCPCS: 95813 ==

== ENCOUNTER → 2024-06-14 13:26 | Outpatient (BNVA) | payer MEDICARE, BC, SELFPAY | PROVIDERS: PCP Family Medicine; Visit Provider Nurse Practitioner Family | DX: D22.39 Melanocytic nevi of other parts of face (principal); L82.1 Other seborrheic keratosis; L72.0 Epidermal cyst; D22.5 Melanocytic nevi of trunk; L57.8 Other skin changes due to chronic exposure to nonionizing radiation; X32.XXXA Exposure to sunlight, initial encounter; L81.4 Other melanin hyperpigmentation; L57.0 Actinic keratosis | CPT/HCPCS: 17000; 99203 ==

== ENCOUNTER 2024-06-22 07:20 | Outpatient (CLI) | payer MEDICARE, BC, SELFPAY ==
--- NOTE | 2024-06-22 | ECG_ITS ---
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 Interpretive Statements Lung unchanged pre/post procedure; Intraprocedure shortess of breath; Symptoms resoled by discharge PROCEDURE: At the baseline, the EKG revealed sinus bradycardia at a rate of 44 bpm. Poor R wave progression. Some nonspecific T wave changes.. The baseline heart was 44 bpm with a blood pressue of mm of Hg Lexiscan was infused over a period of 20 seconds. A total of 0.4 milligrams of Lexiscan was infused. The stress phase was continued for a total of 5 108/50 108/45 minutes. Heart rate at the end of the stress phase was 58 bpm with a blood pressure 108/50 mm of Hg. The EKG at the peak infusion revealed no significant changes. Sestamibi was injected 20 seconds after the Lexiscan infusion. Heart rate at the end of the recovery phase was 56 bpm with a blood pressure of 106/48 mm of Hg. CONCLUSION: 1. No significant EKG changes with the LexiScan infusion 2. No LexiScan induced chest pain or cardiac arrhythmia 3. Normal blood pressure and heart rate response 4. Sestamibi/sestamibi perfusion scan pending; see separate report. Electronically Signed On 06-26-2024 12:40:56 CDT by Jluis Luo M.D. [email or web address]
--- NOTE | 2024-06-22 07:46 | NMCV_ITS ---
NM abilio perf SPECT r/s* [id number] YvonneElla glez Age: 78 Gender: F : 1945 Exam Date: 06/22/2024 08:29 Ordering Phys: Grant Barreto M.D ([email or web address]) Technologist: NILA Funes Exam Location: [facility] Indications: cp STRESS TEST Please see separate stress test report in [facility] for full findings IMAGE PROTOCOL Rest/Stress 1 Lexiscan Day Radiopharmaceutical Dose (mCi) Administration Site Administered by Rest: Tc-99m 10.4 IV Tonja Hamlin, CAR RENTAL MANAGER Sestamibi Stress:Tc-99m 32.6 IV Tonja Gutierrezgle, CAR RENTAL MANAGER Sestamibi Rest: 22-Jun-2024 60 Discovery 630 Stress: 22-Jun-2024 30 Discovery 630 0.4mg Lexiscan. Images obtained in supine and prone position. SPECT RESULTS Technical Quality: Good Raw Data Analysis: Normal Image Corrections: No attenuation or motion correction applied Summed Stress Score: 2 Summed Rest Score: 0 Summed Difference Score: 2 PERFUSION FINDINGS A small area of moderately decreased tracer uptake was noted in the apical lateral segment with reversibility, only in the supine imaging With the prone imaging, a uniform tracer uptake was noted FUNCTIONAL RESULTS (calculated via Gated SPECT) Stress Image LV EF (%): 92 Stress EDV (mL):64 TID: 1.14 Stress ESV (mL):5 FUNCTIONAL FINDINGS: Segmental wall motion analysis revealing no gross wall motion abnormalities IMPRESSIONS 1. Myocardial perfusion imaging revealing small area of reversible defect in apical lateral region, suggesting ischemia in the distribution of the left circumflex artery. However because of the inconsistency, this could be artifactual 2. Normal LV ejection fraction of 92% 3. LV wall motion analysis revealing no gross wall motion abnormalities. 4. Normal LV volume Clinical correlation is recommended Compared to the study from 2018 and 2021, the reversible defect appears to be new Dr Jluis Luo MD FAC (Electronically Signed) Final Date: 22 Jun 2024 13:34 S
[2024-06-22 07:47] VITALS: BMI 27.1
[2024-06-22] MEDS: regadenoson 0.4 Mg/5 ml Syringe IVP (08:58)
[2024-06-22 09:23] VITALS: BP 106/48; PULSE 53
--- NOTE | 2024-06-22 13:30 | USCV_ITS ---
Ella Russell Age: 78 Gender: F : 1945 Exam Date: 06/22/2024 13:58 Ordering Phys: Grant Barreto M.D ([email or web address]) Technologist: NERI [place] [facility] [place]ication: CP, SoB BP: 108 / 64 HR: 49 Rhythm: Sinus Technical Quality: Adequate MEASUREMENTS (Male / Female) Normal Values 2D ECHO LV Diastolic Diameter PLAX 5.2 cm 4.2 - 5.9 / 3.9 - 5.3 cm IVS Diastolic Thickness 0.8 cm 0.6 - 1.0 / 0.6 - 0.9 cm IVS Systolic Thickness 1.4 cm LVPW Diastolic Thickness 0.9 cm 0.6 - 1.0 / 0.6 - 0.9 cm LVPW Systolic Thickness 2.1 cm LVOT Diameter 1.8 cm LV Ejection Fraction 2D Teich 64.0 % LV Ejection Fraction MOD 4C 68.6 % LV Ejection Fraction MOD 2C 58.2 % LV Ejection Fraction 2C AL 59.0 % LA Diameter 2.6 cm RA Systolic Volume 4C AL 29.9 ml RA Systolic Volume 4C MOD 29.1 ml LA Sys Volume AL 39.6 cm cubed LA Sys Volume Index AL 22.3 cm cubed/m squared Aorta at Sinotubular Diameter 2.4 cm IVC Diameter 1.4 cm M-MODE LA Ao Ratio MM 1.6 AV Cusp Separation MM 1.6 cm DOPPLER AV Peak Velocity 146.0 cm/s LVOT Peak Velocity 125.0 cm/s AV Area Cont Eq vti 1.8 cm squared AV Area Cont Eq pk 2.1 cm squared MV Peak Velocity 95.0 cm/s MV Area PHT 2.7 cm squared Mitral E to A Ratio 1.0 TV Peak Velocity 168.5 cm/s TR Peak Velocity 252.0 cm/s TR Peak Gradient 25.4 mmHg TV Peak E Velocity 63.0 cm/s PV Peak Velocity 91.0 cm/s FINDINGS Left Ventricle Left ventricle is normal size. LV systolic function is normal with EF of 55-60%. No regional wall motion abnormalities are seen Right Ventricle Normal in size and function Right Atrium Normal in size Left Atrium Normal in size Mitral Valve Structurally normal mitral valve. Mild mitral regurgitation. Aortic Valve Structurally normal aortic valve. No significant stenosis or regurgitation. Tricuspid Valve Mild tricuspid regurgitation. Pulmonary artery systolic pressure is normal. Pulmonic Valve Trace pulmonic regurgitation. Pericardium Normal Aorta Normal in size IVC Appears to be normal CONCLUSIONS LV systolic function normal with EF of 55-60%. Mild mitral regurgitation Mild tricuspid regurgitation Trace pulmonic regurgitation Grant Barreto MD (Electronically Signed) Final Date: 02 Jul 2024 12:23 S
== END 2024-06-22 07:21 | disposition home or self-care (01) ==
PROVIDERS: PCP Family Medicine; Visit Provider Internal Medicine
DX: R07.9 Chest pain, unspecified (principal); R06.02 Shortness of breath; I34.0 Nonrheumatic mitral (valve) insufficiency; I07.1 Rheumatic tricuspid insufficiency; R93.1 Abnormal findings on diagnostic imaging of heart and coronary circulation
CPT/HCPCS: 36415; 78452; 93017; 93306; 96374; A9500; J2785

== ENCOUNTER → 2024-06-26 12:53 | Outpatient (BNVA) | payer MEDICARE, BC, SELFPAY | PROVIDERS: PCP Family Medicine; Visit Provider Internal Medicine | DX: R00.1 Bradycardia, unspecified (principal); I49.8 Other specified cardiac arrhythmias; I49.3 Ventricular premature depolarization; I49.1 Atrial premature depolarization; I47.20 Ventricular tachycardia, unspecified; I47.10 Supraventricular tachycardia, unspecified | CPT/HCPCS: 93242 ==

== ENCOUNTER → 2024-11-20 10:23 | Outpatient (BNVA) | payer MEDICARE, BC, SELFPAY | PROVIDERS: PCP Family Medicine; Visit Provider Family Medicine | DX: Z13.6 Encounter for screening for cardiovascular disorders (principal) | CPT/HCPCS: 80053; 80061; 84439; 84443; 85025 ==

== ENCOUNTER → 2024-11-30 12:19 | Outpatient (BNVA) | payer MEDICARE, BC, SELFPAY | PROVIDERS: PCP Family Medicine; Visit Provider Internal Medicine | DX: R07.9 Chest pain, unspecified (principal); R06.02 Shortness of breath; R00.1 Bradycardia, unspecified; I10 Essential (primary) hypertension; I25.10 Atherosclerotic heart disease of native coronary artery without angina pectoris; G47.33 Obstructive sleep apnea (adult) (pediatric); Z72.0 Tobacco use; Z86.73 Personal history of transient ischemic attack (TIA), and cerebral infarction without residual deficits | CPT/HCPCS: 99213 ==